=== PATIENT | male | born 1950 | race Caucasian/White ===

== ENCOUNTER → 2018-05-04 09:31 | Outpatient (CLI) | payer MEDICARE, SELFPAY ==
[2018-05-04 12:46] LABS: Hemoglobin A1c 7.5 % (4.2-6.3)
[2018-05-04 12:54] LABS: AST(SGOT) 19 U/L (15-37); Alanine Aminotransfer ALT/SGPT 25 U/L (16-61); Albumin, Serum 3.8 g/dL (3.2-5.0); Alkaline Phosphatase 87 U/L (45-117); Anion Gap 7 (5-15); BUN 15 mg/dL (7-18); BUN/Creat Ratio 12.6 RATIO (10-20); Bilirubin, Direct 0.06 mg/dL (0.00-0.30); Calcium,Total 8.8 mg/dL (8.5-10.1); Chloride 105 mmol/L (98-107); Cholesterol 150 mg/dL (200); Creatinine, Serum 1.19 mg/dL (0.70-1.30); EST Glomerular Filtration Rate 64 mL/min (>60); Est Glom Filt Rate - Afr Amer 78 mL/min (>60); Glucose 153 mg/dL (74-106); High Density Lipoprotein 31 mg/dL; PSA,Total - Annual Screen 1.04 ng/mL (0.00-4.00); Potassium 4.4 mmol/L (3.5-5.1); Protein, Total 7.8 g/dL (6.4-8.2); Sodium Level 141 mmol/L (136-145); Thyroid Stim Hormone (TSH) 3.45 uIU/mL (0.358-3.74); Triglycerides 127 mg/dL; Very Low Density Lipoprotein 25 mg/dL (5-40)
[2018-05-04 13:11] LABS: Microalbumin:Creatinine Ratio 163.3 mg/g CRE (<30 mg/g CRE)
== END ==
PROVIDERS: Family Provider Family Medicine; PCP Family Medicine; Visit Provider Family Medicine
DX: Z00.00 Encounter for general adult medical examination without abnormal findings (principal); E03.9 Hypothyroidism, unspecified; E11.9 Type 2 diabetes mellitus without complications; Z12.5 Encounter for screening for malignant neoplasm of prostate
CPT/HCPCS: 36415; 80048; 80061; 80076; 82043; 82306; 82570; 83036; 84153; 84443; G0103

== ENCOUNTER → 2018-11-02 08:45 | Outpatient (CLI) | payer MEDICARE, SELFPAY ==
[2018-11-02 10:37] LABS: Microalbumin:Creatinine Ratio 148.3 mg/g CRE (<30 mg/g CRE)
[2018-11-02 10:52] LABS: AST(SGOT) 15 U/L (15-37); Alanine Aminotransfer ALT/SGPT 19 U/L (16-61); Alkaline Phosphatase 84 U/L (45-117); Anion Gap 8 (5-15); BUN 18 mg/dL (7-18); BUN/Creat Ratio 14.4 RATIO (10-20); Bilirubin, Direct 0.16 mg/dL (0.00-0.30); Chloride 103 mmol/L (98-107); Cholesterol 170 mg/dL (200); Creatinine, Serum 1.25 mg/dL (0.70-1.30); EST Glomerular Filtration Rate 61 mL/min (>60); Est Glom Filt Rate - Afr Amer 74 mL/min (>60); Globulin 3.7 g/dL (2.2-4.2); Glucose 160 mg/dL (74-106); High Density Lipoprotein 29 mg/dL; Potassium 4.7 mmol/L (3.5-5.1); Protein, Total 7.7 g/dL (6.4-8.2); Sodium Level 137 mmol/L (136-145); Thyroid Stim Hormone (TSH) 3.84 uIU/mL (0.358-3.74); Triglycerides 193 mg/dL; Very Low Density Lipoprotein 39 mg/dL (5-40)
== END ==
PROVIDERS: Family Provider Family Medicine; PCP Family Medicine; Referring Provider Family Medicine; Visit Provider Family Medicine
DX: E11.9 Type 2 diabetes mellitus without complications (principal); E03.9 Hypothyroidism, unspecified
CPT/HCPCS: 36415; 80048; 80061; 80076; 82043; 82570; 84443

== ENCOUNTER → 2019-02-20 07:06 | Outpatient (CLI) | payer MEDICARE, SELFPAY ==
--- NOTE | 2019-02-20 07:11 | CT_ITS ---
STUDY: CT MAXILLOFACIAL SINUSES REASON FOR EXAM: Male, 68 years old. Right-sided nasal polyps. RADIATION DOSAGE (If Supplied By Facility): CTDIvol = ( 29.38 ) mGy, DLP = ( 481.34 ) mGycm TECHNIQUE: The patient was scanned in a multi detector CT scanner. High resolution axial imaging was performed without the administration of intravenous contrast material. Sagittal and coronal images were reconstructed. Individualized dose optimization techniques were used for this CT. COMPARISON: None. FINDINGS: FRONTAL SINUSES: Opacification of the right frontal sinus. ETHMOIDAL SINUSES: Opacification with a thinning of the bony septations of the right ethmoid sinus. MAXILLARY SINUSES: Opacification of the right maxillary sinus with thinning of the medial wall. SPHENOIDAL SINUSES: Mucosal thickening of the anterior aspect of the right sphenoid sinus. Soft tissue proliferation in the right nasal fossa in keeping with the clinical history of nasal polyposis. The visualized bilateral orbital contents are normal. CT/Sinus/Facial Bone IMPRESSION: Soft tissue fullness of the right nasal airway with opacification of the right maxillary sinus, ethmoid sinus and frontal sinus. Thinning of the medial wall of the maxillary sinus on the right side as well as the ethmoid sinuses. Electronically Signed: Braulio Avendaño, at 13:39 EDT , Service support ,
== END ==
PROVIDERS: Family Provider Family Medicine; PCP Family Medicine; Referring Provider Otolaryngology Otolaryngology/Facial Plastic Surgery; Visit Provider Otolaryngology Otolaryngology/Facial Plastic Surgery
DX: J33.9 Nasal polyp, unspecified (principal)
CPT/HCPCS: 70486

== ENCOUNTER 2019-03-14 07:13 | Day surgery (SDC) | payer MEDICARE, SELFPAY ==
--- NOTE | 2019-03-08 10:09 | EKG12_ITS ---
Test Reason : PRE OP Blood Pressure : / mmHG Vent. Rate : 073 BPM Atrial Rate : 073 BPM P-R Int : 160 ms QRS Dur : 100 ms QT Int : 352 ms P-R-T Axes : 048 048 061 degrees QTc Int : 387 ms Normal sinus rhythm Normal ECG No previous ECGs available Confirmed by DASH PIERCE ([id number]), international editorial producer CHELY TANG ([id number]) on 03/13/2019 12:59:34 PM Referred By: Derek Hirsch Confirmed By:DASH PIERCE
[2019-03-08 10:56] LABS: Anion Gap 10 (5-15); BUN 26 mg/dL (7-18); BUN/Creat Ratio 17.3 RATIO (10-20); Calcium,Total 9.2 mg/dL (8.5-10.1); Chloride 104 mmol/L (98-107); EST Glomerular Filtration Rate 49 mL/min (>60); Est Glom Filt Rate - Afr Amer 60 mL/min (>60); Glucose 265 mg/dL (74-106); Potassium 4.4 mmol/L (3.5-5.1); Sodium Level 141 mmol/L (136-145); Thyroid Stim Hormone (TSH) 2.95 uIU/mL (0.358-3.74)
[2019-03-08 11:09] LABS: Hemoglobin A1c 8.2 % (4.2-6.3)
[2019-03-14] VITALS (7 sets, daily range): BP systolic 98–156; BP diastolic 54–77; PULSE 57–65; RESP 14–16; TEMP 36–36.4; O2SAT 91–98; BMI 35.5
[2019-03-14 07:44] LABS: Hematocrit 42.5 % (40-54); Hemoglobin 14.6 g/dl (13.0-16.5); Mean Corp Hgb Conc 34.4 g/gl (32-36); Mean Corpuscular Hgb 30.3 pg (27.0-32.0); Mean Corpuscular Volume 88.2 fL (80-94); Mean Platelet Vol. 9.8 fl (6.2-12.0); Platelet Count 293 K/mm3 (150-450); Red Blood Count 4.82 M/mm3 (4.6-6.2)
--- NOTE | 2019-03-14 07:47 | PCM.OPRPT ---
Problem List (1) Chronic pansinusitis Status: Chronic (2) Nasal sinus polyp Status: Chronic Report of Operation Date of Procedure: 03/14/19 Pre-Operative Diagnosis: chronic pansinusitis Post-Operative Diagnosis: chronic pansinusitis Type of Anesthesia:: General Description of Procedure: on the day of the procedure, after appropriate informed consent was obtained, the patient was brought to the operating room and placed in supine position on the operating table. he was placed under general endotracheal anesthesia. the endotracheal tube was secured, the eyes were lubricated. the image guidance navigation facial recognition markers were set up. the nose was decongested with oxymetazoline soaked pledgets. the zero degree endoscope was inserted into the left nasal cavity. the superior attachment of the middle turbinate and uncinate were injected with lidocaine/epinephrine. polyps were removed from the middle meatus with the microdebrider. an uncinectomy/antrostomy was performed with a lisa elevator and a blakesley. contents were evacuated. the antrostomy was widened with a back biter. the ethmoid bulla was entered bluntly using the suction tip. a total ethmoidectomy was performed with a curette and an upgoing blakesley. numerous polyps were removed. this was taken superiorly to the skull base and laterally to the lamina. a stankewicz maneuver was performed and no laminar defect was noted. a frontal sinus seeker and an upgoing blakesley were used to explore the frontal recess. contents were evacuated. the natural sphenoid os was opened with the microdebrider and contents were evacuated. the anterior/inferior portion of the middle turbinate was removed with turbinate scizzors. hemostasis was achieved and the nose was irrigated with saline. a propel stent was placed in the ethmoid chamber. the zero degree endoscope was inserted into the right nasal cavity. the superior attachment of the middle turbinate and uncinate were injected with lidocaine/epinephrine. polyps were removed from the middle meatus with the microdebrider. an uncinectomy/antrostomy was performed with a lisa elevator and a blakesley. contents were evacuated. the antrostomy was widened with a back biter. the ethmoid bulla was entered bluntly using the suction tip. a total ethmoidectomy was performed with a curette and an upgoing blakesley. numerous polyps were removed. this was taken superiorly to the skull base and laterally to the lamina. a stankewicz maneuver was performed and no laminar defect was noted. a frontal sinus seeker and an upgoing blakesley were used to explore the frontal recess. contents were evacuated. the natural sphenoid os was opened with the microdebrider and contents were evacuated. the anterior/inferior portion of the middle turbinate was removed with turbinate scizzors. hemostasis was achieved and the nose was irrigated with saline. a propel stent was placed in the ethmoid chamber. the patient was awoken from anesthesia and transferred to the PACU in stable condition.
[2019-03-14 08:00] LABS: Scan Indicated on CBC? Y/N NO
[2019-03-14 08:05] LABS: Bedside Glucose 150 mg/dL (70-110)
--- NOTE | 2019-03-14 08:40 | ETH_PTH ---
PATIENT: LATONYA NANCE [place] [facility] [id number] AGE/SX: 68/M ROOM: RE03/14/[address]: Dr. Mariusz Hirsch MD : 1950 BED: DIS: 03/14/2019 SPEC #: [id number] RECD: 03/14/19 12:46 STATUS: SANTIAGO REVidhya #: [id number] MAX: 03/14/19 08:[address]: Mariusz Hirsch DEPT: SURGICAL PATHOLOGY RECD BY: Deshawn Harris ENTERED: 03/14/19 14:25 SP TYPE: ETH TISS OTHR DR: MD Dr. Jack Hilliard MD Tissues: A - Ethmoid sinus, NOS B - Ethmoid sinus, NOS Procedures: Decalcification bone/plaque Surgery Specimen Level III HEADER OPERATION: Endoscopic intranasal ethmoid PRE-OP DIAGNOSIS: Chronic pansinusitis, polyp of nasal cavity TISSUE SUBMITTED: A - Left maxillary and ethmoid sinus contents, B - Right maxillary and ethmoid sinus contents MICROSCOPIC DIAGNOSIS A. Left maxillary and ethmoid sinus contents, curettings: Chronic sinusitis. Fragments of bone with no pathologic change. B. Right maxillary and ethmoid sinus contents, curettings: Chronic sinusitis. Fragments of bone with no pathologic change. Fragments of benign sinonasal polyp, inflamed. AM:skye 03/17/19 MICROSCOPIC DESCRIPTION Slides are reviewed. GROSS DESCRIPTION A - Received in fixative is one container labeled with the patient's name and designated left maxillary and ethmoid sinus contents. The specimen consists of multiple fragments of hemorrhagic, frothy mucoid tissue mixed with martell-pink soft tissue that in aggregate measure 4 x 4 x 1.5 cm. A few possible fragments of bone are also noted. Engineering Analyst sections are submitted in two cassettes after decalcification. B - Received in fixative is one container labeled with the patient's name and designated right maxillary and ethmoid sinus contents. The specimen consists of multiple polypoid fragments of martell soft tissue that in aggregate measure 5 x 5.5 x 2 cm. The largest polypoid fragment measures up to 3.5 cm in greatest dimension. The largest and a few smaller and intermediate polypoid pieces are sectioned. Sectioning reveals mucoid cut surfaces. Also present in the cloth suction bag are multiple pieces of frothy, hemorrhagic soft tissue that in aggregate measure 7 x 5 x 3 cm. Two possible fragments of bone are also noted. Engineering Analyst sections are submitted in seven cassettes as follows: 1-6 - polypoid fragments, 7 - frothy, hemorrhagic tissue. 90% of the polypoid tissue is submitted after decalcification. / DUSTIN:skye 03/14/19 TC:3 CPT: 69804 x2, [id number]
[2019-03-14] MEDS: Oxymetazoline 0.05% 1 SPRAY SPRAY.BTL 15 SPRAY (08:50)
--- NOTE | 2019-03-14 09:56 | PCM.DC ---
- Discharge Diagnoses Current Active Problems: Current Active and Chronic Problems Chronic pansinusitis (Chronic) Nasal sinus polyp (Chronic) You will use the following diet at home:: No restrictions Discharge Activity: Return to Normal Activity Call your doctor if your incision/area has: Sudden Increased Bleeding, Increased Pain/ Swelling Additional Dressing/Incision Instructions:: irrigate nasal cavities 6 times/day with saline Allergies/Adverse Reactions: Allergies No Known Allergies Allergy (Verified 03/07/19 08:03) Medications to take at Discharge Aspirin [Aspir-Low] 81 mg PO DAILY 03/07/19 Diltiazem HCl [Diltiazem 24Hr ER] 240 mg PO BID 03/07/19 Doxazosin Mesylate [Cardura] 2 mg PO 1600 03/07/19 Insulin Glargine [Lantus (BKC)] 58 units SUBCUT QHS 03/07/19 Insulin Lispro [Humalog Kwikpen] 20 unit SQ TIDCM 03/07/19 Levothyroxine Sodium [Synthroid] 100 mcg PO DAILY 03/07/19 Losartan Potassium [Cozaar] 100 mg PO DAILY 03/07/19 Metformin HCl 1,000 mg PO BID 03/07/19 Acetaminophen/Codeine #3 [Tylenol#3] 1 tab PO Q6H PRN PRN #15 tab 03/14/19 The following prescriptions were given: Acetaminophen/Codeine #3 [Tylenol#3] 1 tab PO Q6H PRN PRN #15 tab PRN Reason: Pain Prescription Printed Orders to be completed after discharge: 12 Lead EKG [CVS] Time Frame: 03/07/19, Facility: [facility], Location: Cardiovascular Services Basic Metabolic Profile (BMP) Time Frame: 03/07/19, Facility: [facility], Location: Laboratory Hemoglobin A1c Time Frame: 03/07/19, Facility: [facility], Location: Laboratory Thyroid Stim Hormone (TSH) Time Frame: 03/07/19, Facility: [facility], Location: Laboratory Primary Care Physician: Jack Hammond MD [Primary Care Provider] - Test Results: Test results from this visit will be discussed in further detail at your follow-up appointment, if applicable. Please Follow Up With: Derek Hirsch MD When: 1 week
[2019-03-14 11:16] LABS: Bedside Glucose 241 mg/dL (70-110)
== END 2019-03-14 11:52 | disposition home or self-care (01) ==
LOC: SDC 07:13 → AC 07:15
PROVIDERS: Family Provider Family Medicine; PCP Family Medicine; Referring Provider Otolaryngology; Visit Provider Otolaryngology
PROC: (CPT 31237; principal; 2019-03-14 08:10)
DX: J32.9 Chronic sinusitis, unspecified (principal); J33.8 Other polyp of sinus; I10 Essential (primary) hypertension; E11.9 Type 2 diabetes mellitus without complications; Z79.4 Long term (current) use of insulin
CPT/HCPCS: 00160; 31237; 31240; 31267; 36415; 80048; 82962; 83036; 84443; 85027; 88304; 88305; 88311; 93005; J7120; J2405

== ENCOUNTER → 2020-06-03 08:03 | Outpatient (CLI) | payer MEDICARE, SELFPAY ==
[2019-03-14 07:47] VITALS: BMI 35.5
[2020-06-03 10:15] LABS: Anion Gap 5 (5-15); BUN 20 mg/dL (7-18); BUN/Creat Ratio 15.7 RATIO (10-20); Calcium,Total 8.7 mg/dL (8.5-10.1); Chloride 104 mmol/L (98-107); Cholesterol 176 mg/dL (200); Creatinine, Serum 1.27 mg/dL (0.70-1.30); EST Glomerular Filtration Rate 59 mL/min (>60); Est Glom Filt Rate - Afr Amer 72 mL/min (>60); Free T3 2.6 pg/mL (2.18-3.98); Glucose 180 mg/dL (74-106); High Density Lipoprotein 29 mg/dL; Potassium 4.1 mmol/L (3.5-5.1); Sodium Level 137 mmol/L (136-145); T4 Total, Thyroxin 10.1 ug/dL (4.5-12.1); Triglycerides 139 mg/dL; Very Low Density Lipoprotein 28 mg/dL (5-40)
== END ==
PROVIDERS: PCP Family Medicine; Visit Provider Family Medicine
DX: E11.9 Type 2 diabetes mellitus without complications (principal); E03.9 Hypothyroidism, unspecified
CPT/HCPCS: 36415; 80048; 80061; 84436; 84443; 84481

== ENCOUNTER → 2021-03-24 10:25 | Outpatient (CLI) | payer MEDICARE, SELFPAY ==
[2021-03-24 09:40] VITALS: BMI 37.8
[2021-03-24 12:52] LABS: ALB/GLOB Ratio 1.1 RATIO (0.9-2.4); AST(SGOT) 12 U/L (15-37); Alanine Aminotransfer ALT/SGPT 24 U/L (16-61); Albumin, Serum 3.9 g/dL (3.2-5.0); Alkaline Phosphatase 91 U/L (45-117); Anion Gap 5 (5-15); BUN 14 mg/dL (7-18); BUN/Creat Ratio 11.9 RATIO (10-20); Calcium,Total 9.1 mg/dL (8.5-10.1); Chloride 102 mmol/L (98-107); Cholesterol 190 mg/dL (200); Creatinine, Serum 1.18 mg/dL (0.70-1.30); EST Glomerular Filtration Rate 65 mL/min (>60); Est Glom Filt Rate - Afr Amer 78 mL/min (>60); Globulin 3.7 g/dL (2.2-4.2); Glucose 117 mg/dL (74-106); High Density Lipoprotein 34 mg/dL; Potassium 3.9 mmol/L (3.5-5.1); Protein, Total 7.6 g/dL (6.4-8.2); Sodium Level 138 mmol/L (136-145); T4 Free Direct 1.11 ng/dL (0.76-1.46); Thyroid Stim Hormone (TSH) 3.99 uIU/mL (0.358-3.74); Triglycerides 171 mg/dL; Very Low Density Lipoprotein 34 mg/dL (5-40)
[2021-03-24 13:37] LABS: Microalbumin:Creatinine Ratio 554.9 mg/g CRE (<30 mg/g CRE)
== END ==
PROVIDERS: PCP Family Medicine; Visit Provider Nurse Practitioner Family
DX: E03.9 Hypothyroidism, unspecified (principal); E11.65 Type 2 diabetes mellitus with hyperglycemia; E11.22 Type 2 diabetes mellitus with diabetic chronic kidney disease; N18.30 Chronic kidney disease, stage 3 unspecified; Z79.4 Long term (current) use of insulin; I12.9 Hypertensive chronic kidney disease with stage 1 through stage 4 chronic kidney disease, or unspecified chronic kidney disease
CPT/HCPCS: 36415; 80053; 80061; 82043; 82570; 84439; 84443

== ENCOUNTER → 2021-06-03 08:25 | Outpatient (CLI) | payer MEDICARE, SELFPAY ==
[2021-06-03 10:48] LABS: Anion Gap 8 (5-15); BUN 12 mg/dL (7-18); BUN/Creat Ratio 9.5 RATIO (10-20); Calcium,Total 9.2 mg/dL (8.5-10.1); Chloride 101 mmol/L (98-107); Cholesterol 192 mg/dL (200); Creatinine, Serum 1.26 mg/dL (0.70-1.30); EST Glomerular Filtration Rate 60 mL/min (>60); Est Glom Filt Rate - Afr Amer 72 mL/min (>60); Free T3 2.8 pg/mL (2.18-3.98); Glucose 198 mg/dL (74-106); High Density Lipoprotein 33 mg/dL; Potassium 4.4 mmol/L (3.5-5.1); Sodium Level 139 mmol/L (136-145); T4 Free Direct 1.18 ng/dL (0.76-1.46); Thyroid Stim Hormone (TSH) 2.94 uIU/mL (0.358-3.74); Triglycerides 187 mg/dL; Very Low Density Lipoprotein 37 mg/dL (5-40)
== END ==
PROVIDERS: PCP Family Medicine; Referring Provider Family Medicine; Visit Provider Family Medicine
DX: E03.9 Hypothyroidism, unspecified (principal); E11.9 Type 2 diabetes mellitus without complications
CPT/HCPCS: 36415; 80048; 80061; 84439; 84443; 84481

== ENCOUNTER 2021-09-26 08:08 | Outpatient (CLI) | payer MEDICARE, SELFPAY ==
[2021-09-26 10:43] LABS: Anion Gap 6 (5-15); BUN 18 mg/dL (7-18); BUN/Creat Ratio 15.1 RATIO (10-20); Calcium,Total 9.3 mg/dL (8.5-10.1); Chloride 105 mmol/L (98-107); Cholesterol 193 mg/dL (200); Creatinine, Serum 1.19 mg/dL (0.70-1.30); EST Glomerular Filtration Rate 64 mL/min (>60); Est Glom Filt Rate - Afr Amer 77 mL/min (>60); Glucose 123 mg/dL (74-106); High Density Lipoprotein 33 mg/dL; Potassium 4.5 mmol/L (3.5-5.1); Sodium Level 139 mmol/L (136-145); Thyroid Stim Hormone (TSH) 3.79 uIU/mL (0.358-3.74); Triglycerides 158 mg/dL; Very Low Density Lipoprotein 32 mg/dL (5-40)
== END 2021-09-26 23:59 | disposition short-term general hospital (02) ==
PROVIDERS: PCP Family Medicine; Referring Provider Family Medicine; Visit Provider Family Medicine
DX: E11.9 Type 2 diabetes mellitus without complications (principal); E03.9 Hypothyroidism, unspecified
CPT/HCPCS: 36415; 80048; 80061; 84443

== ENCOUNTER 2021-11-28 08:11 | Outpatient (CLI) | payer MEDICARE, SELFPAY ==
[2021-11-28 10:40] LABS: Anion Gap 5 (5-15); BUN 17 mg/dL (7-18); BUN/Creat Ratio 14.3 RATIO (10-20); Calcium,Total 8.9 mg/dL (8.5-10.1); Chloride 104 mmol/L (98-107); Cholesterol 116 mg/dL (200); Creatinine, Serum 1.19 mg/dL (0.70-1.30); EST Glomerular Filtration Rate 64 mL/min (>60); Est Glom Filt Rate - Afr Amer 77 mL/min (>60); Free T3 2.5 pg/mL (2.18-3.98); Glucose 164 mg/dL (74-106); High Density Lipoprotein 30 mg/dL; Potassium 4.3 mmol/L (3.5-5.1); Sodium Level 139 mmol/L (136-145); T4 Free Direct 1.25 ng/dL (0.76-1.46); Thyroid Stim Hormone (TSH) 3.34 uIU/mL (0.358-3.74); Triglycerides 156 mg/dL; Very Low Density Lipoprotein 31 mg/dL (5-40)
== END 2021-11-28 23:59 | disposition home or self-care (01) ==
LOC: MFPLAB 08:13
PROVIDERS: PCP Family Medicine; Referring Provider Family Medicine; Visit Provider Family Medicine
DX: E11.9 Type 2 diabetes mellitus without complications (principal); E03.9 Hypothyroidism, unspecified
CPT/HCPCS: 36415; 80048; 80061; 84439; 84443; 84481

== ENCOUNTER → 2022-05-25 | Outpatient (CLI) | payer MEDICARE, SELFPAY ==
[2022-05-25 13:17] LABS: Anion Gap 8 (5-15); BUN 18 mg/dL (7-18); BUN/Creat Ratio 14.1 RATIO (10-20); Calcium,Total 9.7 mg/dL (8.5-10.1); Chloride 107 mmol/L (98-107); Cholesterol 141 mg/dL (200); Creatinine, Serum 1.28 mg/dL (0.70-1.30); EST Glomerular Filtration Rate 59 mL/min (>60); Est Glom Filt Rate - Afr Amer 71 mL/min (>60); Free T3 2.4 pg/mL (2.18-3.98); Glucose 75 mg/dL (74-106); High Density Lipoprotein 29 mg/dL; Potassium 4.1 mmol/L (3.5-5.1); Sodium Level 142 mmol/L (136-145); T4 Free Direct 1.19 ng/dL (0.76-1.46); Thyroid Stim Hormone (TSH) 3.81 uIU/mL (0.358-3.74); Triglycerides 242 mg/dL; Very Low Density Lipoprotein 48 mg/dL (5-40)
== END | disposition home or self-care (01) ==
LOC: MFPLAB 10:16
PROVIDERS: PCP Family Medicine; Visit Provider Family Medicine
DX: E03.9 Hypothyroidism, unspecified (principal); I10 Essential (primary) hypertension
CPT/HCPCS: 36415; 80048; 80061; 84439; 84443; 84481

== ENCOUNTER → 2022-11-13 | Outpatient (CLI) | payer MEDICARE, SELFPAY ==
[2022-11-13 10:46] LABS: Anion Gap 6 (5-15); BUN 23 mg/dL (7-18); BUN/Creat Ratio 15.3 RATIO (10-20); Calcium,Total 8.8 mg/dL (8.5-10.1); Chloride 103 mmol/L (98-107); Cholesterol 103 mg/dL (200); EST Glomerular Filtration Rate 49 mL/min (>60); Est Glom Filt Rate - Afr Amer 59 mL/min (>60); Glucose 288 mg/dL (74-106); High Density Lipoprotein 29 mg/dL; Potassium 4.1 mmol/L (3.5-5.1); Sodium Level 137 mmol/L (136-145); T4 Free Direct 1.11 ng/dL (0.76-1.46); Thyroid Stim Hormone (TSH) 2.92 uIU/mL (0.358-3.74); Triglycerides 186 mg/dL; Very Low Density Lipoprotein 37 mg/dL (5-40)
[2022-11-13 10:54] LABS: Microalbumin:Creatinine Ratio 157.7 mg/g CRE (<30 mg/g CRE)
== END | disposition home or self-care (01) ==
LOC: MFPLAB 08:18
PROVIDERS: PCP Family Medicine; Referring Provider Family Medicine; Visit Provider Family Medicine
DX: E11.9 Type 2 diabetes mellitus without complications (principal); E03.9 Hypothyroidism, unspecified
CPT/HCPCS: 36415; 80048; 80061; 82043; 82570; 84439; 84443; 84481

== ENCOUNTER 2023-03-15 10:24 | Outpatient (RCR) | payer SELFPAY | END 2023-04-05 23:59 | LOC: NS 10:24 | PROVIDERS: PCP Family Medicine | DX: Z71.3 Dietary counseling and surveillance (principal); E11.9 Type 2 diabetes mellitus without complications ==

== ENCOUNTER → 2023-05-19 | Outpatient (CLI) | payer MEDICARE, SELFPAY ==
[2023-05-19 10:49] LABS: Anion Gap 3 (5-15); BUN 16 mg/dL (7-18); BUN/Creat Ratio 12.8 RATIO (10-20); Calcium,Total 9.1 mg/dL (8.5-10.1); Chloride 107 mmol/L (98-107); Cholesterol 113 mg/dL (200); Creatinine, Serum 1.25 mg/dL (0.70-1.30); EST Glomerular Filtration Rate 60 mL/min (>60); Est Glom Filt Rate - Afr Amer 73 mL/min (>60); Glucose 169 mg/dL (74-106); High Density Lipoprotein 34 mg/dL; PSA,Total - Annual Screen 1.57 ng/mL (0.00-4.00); Potassium 4.3 mmol/L (3.5-5.1); Sodium Level 138 mmol/L (136-145); Triglycerides 136 mg/dL; Very Low Density Lipoprotein 27 mg/dL (5-40)
== END | disposition home or self-care (01) ==
LOC: MFPLAB 09:13
PROVIDERS: PCP Family Medicine; Visit Provider Family Medicine
DX: Z12.5 Encounter for screening for malignant neoplasm of prostate (principal); E11.21 Type 2 diabetes mellitus with diabetic nephropathy; I10 Essential (primary) hypertension
CPT/HCPCS: 36415; 80048; 80061; 84153; G0103

== ENCOUNTER 2023-07-21 11:45 | Outpatient (CLI) | payer MEDICARE, SELFPAY ==
[2023-07-21 15:29] LABS: Anion Gap 3 (5-15); BUN 23 mg/dL (7-18); BUN/Creat Ratio 15.9 RATIO (10-20); Calcium,Total 8.8 mg/dL (8.5-10.1); Chloride 107 mmol/L (98-107); Creatinine, Serum 1.45 mg/dL (0.70-1.30); EST Glomerular Filtration Rate 51 mL/min (>60); Est Glom Filt Rate - Afr Amer 61 mL/min (>60); Glucose 130 mg/dL (74-106); Potassium 4.2 mmol/L (3.5-5.1); Sodium Level 140 mmol/L (136-145)
[2023-07-21 15:59] LABS: BNP,B-Type NATRIURETIC PEPTIDE 26.4 pg/mL (0-100)
== END 2023-07-21 23:59 | disposition home or self-care (01) ==
LOC: MFPLAB 11:45
PROVIDERS: PCP Family Medicine; Visit Provider Family Medicine
DX: M79.89 Other specified soft tissue disorders (principal); E66.9 Obesity, unspecified
CPT/HCPCS: 36415; 80048; 83880

== ENCOUNTER → 2023-08-05 | Outpatient (CLI) | payer MEDICARE, SELFPAY ==
[2023-08-05 12:35] LABS: Anion Gap 4 (5-15); BUN 24 mg/dL (7-18); BUN/Creat Ratio 16.3 RATIO (10-20); Calcium,Total 9.4 mg/dL (8.5-10.1); Chloride 104 mmol/L (98-107); Creatinine, Serum 1.47 mg/dL (0.70-1.30); EST Glomerular Filtration Rate 50 mL/min (>60); Est Glom Filt Rate - Afr Amer 60 mL/min (>60); Glucose 92 mg/dL (74-106); Potassium 4.4 mmol/L (3.5-5.1); Sodium Level 139 mmol/L (136-145)
== END | disposition home or self-care (01) ==
LOC: MFPLAB 09:42
PROVIDERS: PCP Family Medicine; Visit Provider Family Medicine
DX: R60.9 Edema, unspecified (principal)
CPT/HCPCS: 36415; 80048

== ENCOUNTER → 2023-09-21 | Outpatient (CLI) | payer MEDICARE, SELFPAY ==
--- NOTE | 2023-09-21 09:48 | ECHOCS_ITS ---
Reason For Study: edema Procedure This was a 2D Doppler, Color Flow transthoracic echocardiogram. The study was technically difficult. D/T body habitus. Contrast injection was performed. Exam performed in department. Left Ventricle Normal LV size. Left ventricular systolic function is normal. The estimated ejection fraction is 55 %. Stage 1 diastolic dysfunction. No regional wall motion abnormalities noted. Right Ventricle Normal RV size. Normal systolic function. Atria The left atrium is mildly enlarged. Normal right atrium. Mitral Valve Mitral valve not well visualized. Tricuspid Valve Normal tricuspid valve. Aortic Valve The aortic valve is not well visualized. Pulmonic Valve The pulmonic valve is not well visualized. Great Vessels Normal aortic root. The pulmonary artery is normal size. Normal inferior vena cava. Pericardium/Pleural No pericardial effusion. Medication 22 gauge I.V. with prn adaptor inserted into left arm. Diluted definity 2.5ml given slow IV push to enhance endocardial definition. MMode/2D Measurements & Calculations LVIDd: 5.2 cm IVSd: 1.2 cm Ao root diam: 3.5 cm LVIDs: 3.6 cm LVPWd: 1.1 cm RVDd: 3.6 cm FS: 30.7 % LAV(MOD-bp): 75.9 ml LVAd ap4: 32.0 cm2 SV(MOD-sp4): 47.9 ml LAV(MOD-bp) Indexed: 32.8 ml/m2 LVLd ap4: 9.3 cm LAV(MOD-sp2): 82.1 ml EDV(MOD-sp4): 91.9 ml LAV(MOD-sp4): 69.9 ml EDV(sp4-el): 94.2 ml LVAs ap4: 19.7 cm2 LVLs ap4: 7.6 cm ESV(MOD-sp4): 44.0 ml ESV(sp4-el): 43.1 ml EF(MOD-sp4): 52.1 % EF(sp4-el): 54.3 % SV(sp4-el): 51.1 ml LA A4 area: 22.8 cm2 LA dimension(2D): 4.6 cm RA A4 area: 18.5 cm2 TAPSE: 3.0 cm Time Measurements MV dec time: 0.22 sec Doppler Measurements & Calculations MV E max kannan: 90.3 cm/sec Lat Peak E' Kannan: 9.6 cm/sec Med Peak E' Kannan: 7.5 cm/sec MV A max kannan: 100.6 cm/sec E/E' lat: 9.4 E/E' med: 12.0 MV E/A: 0.90 MV V2 max: 106.1 cm/sec MV P1/2t max kannan: 91.8 cm/sec Ao V2 max: 159.9 cm/sec MV max P.5 mmHg MV P1/2t: 71.1 msec Ao max P.2 mmHg MV V2 mean: 54.1 cm/sec MV dec slope: 378.1 cm/sec2 Ao V2 mean: 122.2 cm/sec MV mean P.4 mmHg MVA(P1/2t): 3.1 cm2 Ao mean P.4 mmHg MV V2 VTI: 32.1 cm Ao V2 VTI: 34.4 cm AV (velocity ratio): 0.74 LV V1 max: 117.9 cm/sec PA V2 max: 119.4 cm/sec LV V1 max P.6 mmHg PA V2 mean: 82.3 cm/sec LV V1 mean P.3 mmHg LV V1 mean: 88.5 cm/sec LV V1 VTI: 25.3 cm ECHO/Echo Complete W/ Contrast Interpretation Summary Normal LV size. Left ventricular systolic function is normal. The estimated ejection fraction is 55 %. Stage 1 diastolic dysfunction. The left atrium is mildly enlarged. Contrast injection was performed. Ordering Physician: Jack Hammond Referring Physician: Jack Hammond Performed By: Yue Sanchez, MYKEL, RVT
== END | disposition home or self-care (01) ==
LOC: CVS 09:47
PROVIDERS: PCP Family Medicine; Referring Provider Family Medicine; Visit Provider Family Medicine
DX: R60.9 Edema, unspecified (principal); I50.30 Unspecified diastolic (congestive) heart failure; I51.7 Cardiomegaly
CPT/HCPCS: 93306; Q9957; A4216; C8929

== ENCOUNTER → 2023-11-01 | Outpatient (CLI) | payer MEDICARE, SELFPAY ==
[2023-11-01 12:26] LABS: Anion Gap 4 (5-15); BUN 24 mg/dL (7-18); BUN/Creat Ratio 16.4 RATIO (10-20); Calcium,Total 9.2 mg/dL (8.5-10.1); Chloride 105 mmol/L (98-107); Cholesterol 110 mg/dL (200); Creatinine, Serum 1.46 mg/dL (0.70-1.30); EST Glomerular Filtration Rate 50 mL/min (>60); Est Glom Filt Rate - Afr Amer 61 mL/min (>60); Glucose 126 mg/dL (74-106); High Density Lipoprotein 31 mg/dL; Potassium 4.1 mmol/L (3.5-5.1); Sodium Level 138 mmol/L (136-145); Triglycerides 121 mg/dL; Very Low Density Lipoprotein 24 mg/dL (5-40)
[2023-11-01 12:33] LABS: Hemoglobin A1c 7.5 % (3.8-5.6)
[2023-11-01 12:42] LABS: Microalbumin:Creatinine Ratio 95.2 mg/g CRE (<30 mg/g CRE)
== END | disposition home or self-care (01) ==
LOC: MFPLAB 10:09
PROVIDERS: PCP Family Medicine; Visit Provider Family Medicine
DX: E11.21 Type 2 diabetes mellitus with diabetic nephropathy (principal)
CPT/HCPCS: 36415; 80048; 80061; 82043; 82570; 83036

== ENCOUNTER → 2024-01-26 | Outpatient (CLI) | payer MEDICARE, SELFPAY ==
[2024-01-26 13:04] LABS: Anion Gap 6 (5-15); BUN 32 mg/dL (7-18); BUN/Creat Ratio 20.6 RATIO (10-20); Calcium,Total 9.4 mg/dL (8.5-10.1); Chloride 104 mmol/L (98-107); Cholesterol 119 mg/dL (200); Creatinine, Serum 1.55 mg/dL (0.70-1.30); EST Glomerular Filtration Rate 47 mL/min (>60); Est Glom Filt Rate - Afr Amer 57 mL/min (>60); Free T3 2.2 pg/mL (2.18-3.98); Glucose 167 mg/dL (74-106); High Density Lipoprotein 28 mg/dL; Potassium 4.3 mmol/L (3.5-5.1); Sodium Level 137 mmol/L (136-145); T4 Free Direct 1.19 ng/dL (0.76-1.46); Thyroid Stim Hormone (TSH) 2.36 uIU/mL (0.358-3.74); Triglycerides 193 mg/dL; Very Low Density Lipoprotein 39 mg/dL (5-40)
== END | disposition home or self-care (01) ==
LOC: MFPLAB 10:23
PROVIDERS: PCP Family Medicine; Visit Provider Family Medicine
DX: E11.21 Type 2 diabetes mellitus with diabetic nephropathy (principal); E03.9 Hypothyroidism, unspecified
CPT/HCPCS: 36415; 80048; 80061; 84439; 84443; 84481

== ENCOUNTER → 2024-04-26 | Outpatient (CLI) | payer MEDICARE, SELFPAY ==
[2024-04-26 15:48] LABS: Anion Gap 6 (5-15); BUN 23 mg/dL (7-18); BUN/Creat Ratio 16.9 RATIO (10-20); Calcium,Total 9.8 mg/dL (8.5-10.1); Chloride 103 mmol/L (98-107); Cholesterol 126 mg/dL (200); Creatinine, Serum 1.36 mg/dL (0.70-1.30); EST Glomerular Filtration Rate 54 mL/min (>60); Est Glom Filt Rate - Afr Amer 66 mL/min (>60); Free T3 2.3 pg/mL (2.18-3.98); Glucose 128 mg/dL (74-106); High Density Lipoprotein 31 mg/dL; Potassium 4.2 mmol/L (3.5-5.1); Sodium Level 138 mmol/L (136-145); T4 Free Direct 1.08 ng/dL (0.76-1.46); Triglycerides 244 mg/dL; Very Low Density Lipoprotein 49 mg/dL (5-40)
== END | disposition home or self-care (01) ==
LOC: MFPLAB 11:22
PROVIDERS: PCP Family Medicine; Visit Provider Family Medicine
DX: E03.9 Hypothyroidism, unspecified (principal); E11.21 Type 2 diabetes mellitus with diabetic nephropathy
CPT/HCPCS: 36415; 80048; 80061; 84439; 84443; 84481

== ENCOUNTER → 2024-09-26 | Outpatient (CLI) | payer MEDICARE, SELFPAY ==
[2024-09-26 13:37] LABS: ALB/GLOB Ratio 0.9 RATIO (0.9-2.4); AST(SGOT) 15 U/L (15-37); Alanine Aminotransfer ALT/SGPT 15 U/L (16-61); Albumin, Serum 3.8 g/dL (3.2-5.0); Alkaline Phosphatase 77 U/L (45-117); Anion Gap 11 (5-15); BUN 26 mg/dL (7-18); BUN/Creat Ratio 15.9 RATIO (10-20); Calcium,Total 9.5 mg/dL (8.5-10.1); Chloride 101 mmol/L (98-107); Cholesterol 115 mg/dL (200); Creatinine, Serum 1.64 mg/dL (0.70-1.30); EST Glomerular Filtration Rate 44 mL/min (>60); Est Glom Filt Rate - Afr Amer 53 mL/min (>60); Free T3 2.2 pg/mL (2.18-3.98); Globulin 4.1 g/dL (2.2-4.2); Glucose 164 mg/dL (74-106); High Density Lipoprotein 35 mg/dL; Protein, Total 7.9 g/dL (6.4-8.2); Sodium Level 138 mmol/L (136-145); T4 Free Direct 1.12 ng/dL (0.76-1.46); Triglycerides 209 mg/dL; Very Low Density Lipoprotein 42 mg/dL (5-40)
== END | disposition home or self-care (01) ==
LOC: MFPLAB 10:25
PROVIDERS: PCP Family Medicine; Referring Provider Family Medicine; Visit Provider Family Medicine
DX: E11.21 Type 2 diabetes mellitus with diabetic nephropathy (principal); E03.9 Hypothyroidism, unspecified
CPT/HCPCS: 36415; 80053; 80061; 84439; 84443; 84481

== ENCOUNTER → 2025-01-02 | Outpatient (CLI) | payer MEDICARE, SELFPAY ==
[2025-01-02 12:52] LABS: Anion Gap 12 (5-15); BUN 18 mg/dL (4-19); BUN/Creat Ratio 13.3 RATIO (10-20); Calcium,Total 9.1 mg/dL (7.6-11.0); Carbon Dioxide 25.2 mmol/L (21.0-32.0); Chloride 102 mmol/L (98-108); Creatinine, Serum 1.35 mg/dL (0.70-1.20); EST Glomerular Filtration Rate 55 (>60); Glucose 170 mg/dL (70-99); Potassium 4.2 mmol/L (3.3-5.1); Sodium Level 139 mmol/L (133-145)
[2025-01-02 13:20] LABS: Protein, Urine (Random) 33.8 mg/dL (0.0-12.0); Protein:Creat Ratio 154 mg/g CRE (0-200)
== END | disposition home or self-care (01) ==
LOC: MFPLAB 09:59
PROVIDERS: PCP Family Medicine; Referring Provider Family Medicine; Visit Provider Family Medicine
DX: N28.9 Disorder of kidney and ureter, unspecified (principal)
CPT/HCPCS: 36415; 80048; 82570; 84156

== ENCOUNTER 2025-02-13 10:30 | Outpatient (RCR) | payer MEDICARE, SELFPAY ==
--- NOTE | 2025-01-22 12:50 | HP.PTEVAL_ITS ---
Patient's Visit Information Visit Information Visit Information: LATONYA NANCE is a 74 year old M referred to Physical Therapy by Dr. Jack Hammond MD with a diagnosis of Back pain. Date of Evaluation: 01/22/25 Physical Therapist: Elio Mccray, GABIT, OCS, CSCS Visit Plan Frequency: 2x /Week Duration: 4-6 Weeks Plan: 2x/week for 3-6.. IE HEP: NS standing, PT 10x, trunk rotation supine 10x, seated flexion 10x all 3x/day and postural review with NS.HO given Treat with rollout and streetch B quads psoas to HEP NS education in standing flexion stretches for LB and Lumb ar ROM. core strength in NS to HEP to complement rittman rec. educated on bracing and benefits of wh walkeer.For pain Subjective Subjective: Back pain with standing and walking. sitting is instant relief. Been that way a couple years, More frequent now. Almost debilitating says . Can't go on a walk, hard to lose weight. [place] rec workout 3x/week adn tolerates well. x ray DDD adn OA. No other doctors. this is first step. Meds do not help. Sleep: is OK. Not employed spends day watching tv and sitting on deck. Tries to go on walk adn can go walk with 1/2 mile with cane or walking stick. Basic ADLSs are shower bathroom dressing all I. Standing at counter making salad hurts, has to sit. Can do groceries but has to lean on cart. Pain LBP: Pain Intensity (Out of 10): 0 Pain Intensity Range: 0 and 4 Objective Objective: Walks into PT with kyphotic T/S posture and sits with protracted scap and hunched. Walks I, flat L/S lordosis. Very little pelvic movement today. L/S AROM ext max limited and painful, flexion mod limited and no pain, SB mod limtied no pain. reeflexes 2/3 patella dna chilles B. Sensation WNL to gross light touch B LE strength knees and ankles 5/5, hips 4+ in flexion and 4- in abd and ext and rotations. Core weak with leg testing in stability. - slump, - SLR. Good balance Balance/Special Test Scores Oswestry Low Back Score: 24 Goals Goal 1:: I appropriate HEP to limit future problems wiht back pain(NS, core strength, quad stretches.) Goal Time Frame: 4-6 Weeks Goal 2:: Pt feel 70% better and pain LB 1/10 at worst Goal Time Frame: 4-6 Weeks Goal 3:: Oswestry score 5 or better Goal Time Frame: 4-6 Weeks Rehabilitation Potential Physical Therapy Diagnosis: degenerative back pain making QOL walking with poor. Rehabilitation Potential: Fair Anticipated Interventions Patient/Client Instruction: Educate patient on: Condition and Plan of Care For the Purpose of:: To decrease pain, To increase ROM, To improve nutrient delivery to tissue, To improve muscle performance and motor function, To increase tolerance to activity/condition/position and To increase flexibility/ROM Therapeutic Exercise to Include: Strength training, Postural training, Fle xibilty training, Passive ROM and Active ROM For the Purpose of:: To decrease pain, To increase ROM, To improve nutrient delivery to tissue, To improve muscle performance and motor function, To increase tolerance to activity/condition/position, To improve ability of physical actions for home/community/work/leisure and To improve gait and locomotor functions Manual Therapy Techniques to Include: Mobilization, Passive ROM and Soft tissue mobilization For the Purpose of:: To decrease pain, To increase ROM, To improve nutrient delivery to tissue, To improve muscle performance and motor function and To increase flexibility/ROM Thermo therapy (hot pack): Yes For the Purpose of:: To improve nutrient delivery to tissue and To decrease level of supervision to perform tasks Text: Thank you for the opportunity to evaluate your patient. For Medicare and Medicare HMO plans, please review the plan of care and approve it. It will need to be FAXED BACK to us at [phone] for Medicare purposes. For Medicare only, by signing this I certify the plan of care. Please let me know if there are questions or concerns regarding this plan of care. Physician Signature: _Date:
--- NOTE | 2025-03-05 15:52 | HP.PTDCNRP_ITS ---
Patient Information Patient Information: LATONYA NANCE was seen in my office for initial evaluation on 01/22/25. The following Plan of Care was established for this patient: POC Established Initial Frequency: 2x /Week Initial Duration: 4-6 Weeks Anticipated Interventions Patient/Client Instruction: Educate patient on: Condition and Plan of Care For the Purpose of:: To decrease pain, To increase ROM, To improve nutrient delivery to tissue, To improve muscle performance and motor function, To increase tolerance to activity/condition/position and To increase flexibil ity/ROM Therapeutic Exercise to Include: Strength training, Postural training, Flexibilty training, Passive ROM and Active ROM For the Purpose of:: To decrease pain, To increase ROM, To improve nutrient delivery to tissue, To improve muscle performance and motor function, To increase tolerance to activity/condition/position, To improve ability of phy sical actions for home/community/work/leisure and To improve gait and locomotor functions Manual Therapy Techniques to Include: Mobilization, Passive ROM and Soft tissue mobilization For the Purpose of:: To decrease pain, To increase ROM, To improve nutrient delivery to tissue, To improve muscle performance and motor function and To increase flexibility/ROM Thermo therapy (hot pack): Yes For the Purpose of:: To improve nutrient delivery to tissue and To decrease level of supervision to perform tasks Last Seen Last Seen: This patient was last seen in our office 02/13/25. Pertinent comments regarding their Physical therapy will appear below: Pt seen 7 visits of POC and was 90% better. He was to f/u two weeks later but cancelled stating evrything is doing great I will discontinue from my care. At this point I will be discontinuing this patient from physical therapy. I would be happy to see this patient again in the future if found appropriate by the physician. Thank you! Elio Mccray, DPT, OCS, CSCS Balance/Gait/Functional tests Balance/Special Test Scores Oswestry Low Back Score: 5
== END 2025-02-13 19:00 | disposition home or self-care (01) ==
LOC: PT 10:30
PROVIDERS: PCP Family Medicine; Referring Provider Family Medicine; Visit Provider Family Medicine
DX: M54.9 Dorsalgia, unspecified (principal)
CPT/HCPCS: 97110; 97161; 97530

== ENCOUNTER → 2025-04-10 | Outpatient (CLI) | payer MEDICARE, SELFPAY ==
--- OUTSIDE RECORDS SUMMARY | 2025-04-10 09:19 | XMS RPT_ITS | CCD ---
Author Organization [facility] Care Team Providers Care Certified Veterinary Technician Name Role Phone Dr. Jack Hammond Primary Care Provider [phone] Ry, Dr. Mcdowell Attending Provider Ry, Dr. Mcdowell Referring Provider Stephany SOLORZANO, Dr. Santiago Primary Care Provider [phone] Stephany SOLORZANO, Dr. Santiago Attending Provider Stephany SOLORZANO, Dr. Santiago Referring Provider Stephany SOLORZANO, Dr. Santiago Primary Care Provider [phone] Stephany SOLORZANO, Dr. Santiago Attending Provider Stephany SOLORZANO, Dr. Santiago Referring Provider Ry SOLORZANO, Dr. Mcdowell Attending Provider Jack Hammond Attending Unavailable Hammond, Jack Primary Care Unavailable Hammond, Jack Primary Care Unavailable Hammond, Jack Referring Unavailable Hammond, Jack Attending Unavailable Hammond, Jack Referring Unavailable Hammond, Jack Attending Unavailable Hammond, Jack Primary Care Unavailable Jeremias Raza Attending Unavailable Stephany, Jack Primary Care Unavailable Hammond, Jack Referring Unavailable Hammond, Jack Attending Unavailable Hammond, Jack Primary Care Unavailable Medications Current Medications Medication Drug Class(es) Dates Sig (Normalized) Sig (Original) [id number] 200 actuat albuterol 0.09 mg/actuat metered dose inhaler (2 sources) beta2-Adrenergic Agonist Start: 12-18-19 24 Albuterol Sulfate 90 mcg/actuation HFA aerosol inhaler Active 2 NMA INHALATION EVERY 4-6 HOURS as needed for shortness of breath or wheezing 8.5 0 December 18, 2023 12:00am amoxicillin 875 mg / clavulanate 125 mg oral tablet (2 sources) Penicillin-class Antibacterial Start: 12-18-19 24 Amoxicillin-Pot Clavulanate 875-125 mg tablet Active 1 {tbl} PO Q12H 20 0 December 18, 2023 12:00am aspirin 81 mg delayed release oral tablet (8 sources) Platelet Aggregation Inhibitor, Nonsteroidal Anti-inflammatory Drug Start: 03-07-20 19 take 1 tablet by mouth once daily Aspirin 81 MG tablet,delayed release (DR/EC) Active 81 mg PO DAILY March 07, 2019 12:00am heart health 24 hr dilTIAZem hydrochloride 240 mg extended release oral capsule (8 sources) Calcium Channel Morales Start: 03-07-20 take 1 capsule by mouth twice daily Diltiazem Hcl 240 MG capsule,extended release 24hr Active 240 mg PO TWICE A DAY March 07, 2019 12:00am htn doxazosin 2 mg oral tablet (8 sources) alpha-Adrenergic Morales Start: 03-07-20 Doxazosin 2 MG tablet Active 2 mg PO 1600 March 07, 2019 12:00am bp hydroCHLOROthiazide 25 mg oral tablet (8 sources) Thiazide Diuretic Start: 05-01-20 21 take 1 tablet by mouth once daily Hydrochlorothiazide 25 mg tablet Active 25 mg PO DAILY 90 3 May 01, 2021 12:00am 3 ml insulin lispro 100 unt/ml pen injector (20 sources) Insulin Analog Start: 11-08-19 End: 05-15-20 21 Insulin Lispro 100 unit/mL insulin pen Active 20 U SC 3 TIMES DAILY WITH MEALS 54 2 May 15, 2021 10:32am diabetes Start: 03-07-2019 End: 11-07-2020 inject 20 [IU] by subcutaneous injection three times daily at mealtime Insulin Lispro 100 UNIT/ML insulin pen Discontinued 20 U SQ 3 TIMES DAILY WITH MEALS March 07, 2019 12:00am November 07, 2020 10:23am diabetes levothyroxine sodium 0.1 mg oral tablet (16 sources) l-Thyroxine Start: 03-07-2019 End: 05-15-2021 take 1 tablet by mouth once daily Levothyroxine 100 mcg tablet Active 100 ug PO DAILY 90 3 May 15, 2021 11:31am thyroid losartan potassium 100 mg oral tablet (16 sources) Angiotensin 2 Receptor Morales Start: 03-07-2019 End: 05-15-2021 take 1 tablet by mouth once daily Losartan 100 mg tablet Active 100 mg PO DAILY 90 3 May 15, 2021 11:31am htn metFORMIN hydrochloride 1000 mg oral tablet (16 sources) Biguanide Start: 03-07-2019 End: 05-15-2021 take 1 tablet by mouth twice daily Metformin 1,000 mg tablet Active 1000 mg PO TWICE A DAY 180 May 15, 2021 11:30am diabetes Completed/Discontinued Medications Medication Drug Class(es) Dates Sig (Normalized) Sig (Original) acetaminophen 300 mg / codeine phosphate 30 mg oral tablet (8 sources) Opioid Agonist Start: 03-14-2019 End: 08-08-2020 Acetaminophen-Codei ne 1 TABLET tablet Discontinued 1 {tbl} PO EVERY 6 HOURS NEEDED as needed for Pain 15 March 14, 2019 12:00am August 08, 2020 9:17am Start: 03-14-2019 End: 08-08-2020 take 1 tablet by mouth every six hours as needed Acetaminophen-Codeine Discontinued 1 TABLET PO EVERY 6 HOURS NEEDED 15 March 13, 2019 11:00pm August 08, 2020 8:17am 3 ml insulin glargine 100 unt/ml pen injector (20 sources) Insulin Analog Start: 11-07-2020 End: 05-15-2021 Insulin Glargine 100 unit/mL (3 mL) insulin pen Discontinued 40 U SC AT BEDTIME 36 2 November 07, 2020 10:20am May 15, 2021 10:32am diabetes Start: 03-07-2019 End: 11-07-2020 Insulin Glargine 100 UNITS/M L insulin pen Discontinued 58 U SC AT BEDTIME March 07, 2019 12:00am November 07, 2020 10:20am diabetes Start: 03-07-2019 End: 11-07-2020 Insulin Glargine Discontinue d 58 UNITS SC AT BEDTIME March 06, 2019 11:00pm November 07, 2020 9:20am Problems Active Problems Problem Classification Problem Date Documented Da te Episodic/Chronic Diabetes mellitus with complications (9 sources) Chronic kidney disease stage 3 due to type 2 diabetes mellitus; Translations: [Type 2 diabetes mellitus with diabetic chronic kidney disease] Onset: 10-19-2024 08-09-2020 Chronic Diabetes mellitus without complication (8 sources) Diabetes mellitus; Translations: [Type 2 diabetes mellitus without complications] 08-09-2020 Chronic Essential hypertension (8 sources) Benign essential hypertension; Translations: [Essential (primary) hypertension] 08-09-2020 Chronic Other diseases of kidney and ureters (1 source) Disorder of kidney and ureter, unspecified; Translations: [Disorder of kidney and ureter, unspecified] Onset: 01-11-2025 Episodic Other lower respiratory disease (2 sources) Cough; Translations: [Cough] 12-18-2023 Episodic Other nutritional; endocrine; and metabolic disorders (8 sources) Obesity; Translations: [Obesity, unspecified] 08-09-2020 Chronic Other upper respiratory disease (8 sources) Polyp of nasal sinus; Translations: [Other polyp of sinus] 03-14-2019 Episodic Other upper respiratory infections (8 sources) Chronic pansinusitis; Translations: [Chronic pansinusitis] 03-14-2019 Chronic Other upper respiratory infections (2 sources) Acute sinusitis; Translations: [Acute sinusitis, unspecified] 12-18-2023 Episodic Thyroid disorders (9 sources) Acquired hypothyroidism; Translations: [Hypothyroidism, unspecified] Onset: 05-12-2024 08-09-2020 Chronic Past or Other Problems Problem Classification Problem Date Documented Da te Episodic/Chronic Unclassified (8 sources) history of bladder/ kidney infection 04-05-2022 Results Test Name Value Interpretation Reference Range Facility Inital Evaluation (1) - PTon 01-22-2025 Inital Evaluation (1) - PT [facility] [address] [place] [address] [address] [place] [address] / REHABILITATION SERVICES INITIAL EVALUATION MR#: [id number] Acct: [id number] Name: LATONYA NANCE Rep #: [id number] : 1950 74 From: Elio Mccray DPT, ZANE, CSCS Referring Dr.: Dr. Jack Hammond MD Status: REG RCR Insurance: [facility] SEL[employer] PAY INSURANCE Patient's Visit Information Visit Information Visit Information: LATONYA NANCE is a 74 year old M referred to Physical Therapy by Dr. Jack Hammond MD with a diagnosis of Back pain. Date of Evaluation: 01/22/25 Physical Therapist: Elio Mccray DPT, ZANE, CSCS Visit Plan Frequency: 2x /Week Duration: 4-6 Weeks Plan: 2x/week for 3-6.. IE HEP: NS standing, PT 10x, trunk rotation supine 10x, seated flexion 10x all 3x/day and postural review with NS.HO given Treat with rollout and streetch B quads psoas to HEP NS education in standing flexion stretches for LB and Lumb ar ROM. core strength in NS to HEP to complement rittman rec. educated on bracing and benefits of wh walkeer.For pain Subjective Subjective: Back pain with standing and walking. sitting is instant relief. Been that way a couple years, More frequent now. Almost debilitating says . Can't go on a walk, hard to lose weight. [place] rec workout 3x/week adn tolerates well. x ray DDD adn OA. No other doctors. this is first step. Meds do not help. Sleep: is OK. Not employed spends day watching tv and sitting on deck. Tries to go on walk adn can go walk with 1/2 mile with cane or walking stick. Basic ADLSs are shower bathroom dressing all I. Standing at counter making salad hurts, has to sit. Can do groceries but has to lean on cart. Pain LBP: Pain Intensity (Out of 10): 0 Pain Intensity Range: 0 and 4 Objective Objective: Walks into PT with kyphotic T/S posture and sits with protracted scap and hunched. Walks I, flat L/S lordosis. Very little pelvic movement today. L/S AROM ext max limited and painful, flexion mod limited and no pain, SB mod limtied no pain. reeflexes 2/3 patella dna chilles B. Sensation WNL to gross light touch B LE strength knees and ankles 5/5, hips 4+ in flexion and 4- in abd and ext and rotations. Core weak with leg testing in stability. - slump, - SLR. Good balance Balance/Special Test Scores Oswestry Low Back Score: 24 Goals Goal 1:: I appropriate HEP to limit future problems wiht back pain(NS, core strength, quad stretches.) Goal Time Frame: 4-6 Weeks Goal 2:: Pt feel 70% better and pain LB 1/10 at worst Goal Time Frame: 4-6 Weeks Goal 3:: Oswestry score 5 or better Goal Time Frame: 4-6 Weeks Rehabilitation Potential Physical Therapy Diagnosis: degenerative back pain making QOL walking with poor. Rehabilitation Potential: Fair Anticipated Interventions Patient/Client Instruction: Educate patient on: Condition and Plan of Care For the Purpose of:: To decrease pain, To increase ROM, To improve nutrient delivery to tissue, To improve muscle performance and motor function, To increase tolerance to activity/condition/p osition and To increase flexibility/ROM Therapeutic Exercise to Include: Strength training, Postural training, Flexibilty training, Passive ROM and Active ROM For the Purpose of:: To decrease pain, To increase ROM, To improve nutrient delivery to tissue, To improve muscle performance and motor function, To increase tolerance to activity/condition/p osition, To improve ability of physical actions for home/community/work/ leisure and To improve gait and locomotor functions Manual Therapy Techniques to Include: Mobilization, Passive ROM and Soft tissue mobilization For the Purpose of:: To decrease pain, To increase ROM, To improve nutrient delivery to tissue, To improve muscle performance and motor function and To increase flexibility/ROM Thermo therapy (hot pack): Yes For the Purpose of:: To improve nutrient delivery to tissue and To decrease level of supervision to perform tasks Text: Thank you for the opportunity to evaluate your patient. For Medicare and Medicare HMO plans, please review the plan of care and approve it. It will need to be FAXED BACK to us at [phone] for Medicare purposes. For Medicare only, by signing this I certify the plan of care. Please let me know if there are questions or concerns regarding this plan of care. Physician Signature: D ate: 01/22/25 1250 CC: Dr. Jack Hammond MD FRANK Signed Normal [facility] Lumbar Spine 2 or 3 Viewson 01-12-2025 Lumbar Spine 2 or 3 Views [facility] Services [address] [place] [address] Lumbar Spine 2 or 3 Views MR#: [id number] Acct: [id number] Name: LATONYA NANCE Rep #: [id number] : 1950 M 74 From: Freddy Jo MD PCP: Dr. Jack Hammond MD Status: DEP AMB Study: Lumbar Spine 2 or 3 Views Date of Exam: Exam# [id number] Ordering Dr: Jack Hammond MD EXAM: XR Lumbosacral Spine, 2 or 3 Views CLINICAL INDICATION: BACK PAIN TECHNIQUE: Frontal and lateral views of the lumbar spine and sacrum. COMPARISON: No relevant prior studies available. FINDINGS: VERTEBRAE: Multilevel endplate degenerative changes and disc disease as well as facet arthropathy anterior spurring of the lumbar spine, most prominent from L3-S1. Normal alignment. No acute fracture. SACRUM/COCCYX: Unremarkable as visualized. No acute fracture. DISC SPACES: No acute findings. No significant narrowing. SOFT TISSUES: Unremarkable. VASCULATURE: Scattered calcified atherosclerotic disease of aorta. RAD/Lumbar Spine 2 or 3 Views IMPRESSION: 1. No acute fracture. 2. Degenerative changes as above. Reading Location: [id number] CC: Dr. Jack Hammond MD Director Business Management: Signed Normal [facility] Anion gap in Serum or Plasma Ordered By: Jack Hammond on 01-02-2025 Anion gap [Moles/Vol] 12 mmol/L 01-18 [facility] BUN/creatinine ratioOrdered By: Jack Hammond on 01-02-2025 Urea nitrogen/Creatinine [Mass ratio] 13.3 mg/mg 06-25 [facility] Basic Metabolic Profile (BMP )on 01-02-2025 BUN/CRE 13.3 RATIO Normal 06-25 [facility] Comment on above: Performed By: #### L 501.0900, L500.2500 #### [facility] [address] [place], [address] GAP 12 Normal 01-18 [facility] Comment on above: Performed By: #### L 501.0900, L500.2500 #### [facility] [address] [place], [address] Potassium [Moles/Vol] 4.2 mmol/L Normal 3.3-5.1 [facility] Comment on above: Performed By: #### L 501.0900, L500.2500 #### [facility] [address] [place], [address] Carbon dioxide, total [Moles /volume] in Central venous bloodOrdered By: Jack Hammond on 01-02-2025 CO2 [Moles/Vol] 25.2 mmol/L Normal 21.0-32.0 [facility] Comment on above: Performed By: #### L 501.0900, L500.2500 #### [facility] [address] [place], [address] Chloride assayOrdered By: Harsh Hammond on 01-02-2025 Chloride [Moles/Vol] 102 mmol/L Normal 98-108 [facility] Comment on above: Performed By: #### L 501.0900, L500.2500 #### [facility] [address] [place], [address] Glomerular filtration rate ( GFR) estimation/1.73 sq m using serum, plasma, or whole bOrdered By: Jack Hammond on 01-02-2025 GFR/1.73 sq M.predicted among non-blacks MDRD (S/P/Bld) [Vol rate/Area] 55 mL/min/{1.73_m2} Low >60 [facility] Comment on above: mL/min/1.73m2 CKD-EP I Creatinine Equation (2020) Result Comment: mL/m in/1.73m2 CKD-EPI Creatinine Equation (2020) Performed By: #### L 501.0900, L500.2500 #### [facility] [address] [place], [address] Potassium measurement (mass/ volume)Ordered By: Jack Hammond on 01-02-2025 Potassium (Unsp spec) [Mass/Vol] 4.2 mmol/L 3.3-5.1 [facility] Protein+Creatinine Ratio,Uri neon 01-02-2025 PROT:CRE RATIO 154 mg/g CRE Normal 0-200 [facility] Comment on above: Performed By: #### L 501.0900, L500.2500 #### [facility] [address] [place], [address] UR CREAT 220.00 mg/dL Normal 39.00-259.00 [facility] Comment on above: Performed By: #### L 501.0900, L500.2500 #### [facility] [address] [place], [address] Random urine creatinine lillie urement (mass/volume)Ordered By: Jack Hammond on 01-02-2025 Creatinine Unsp time (U) [Mass/Vol] 220.00 mg/dL 39.00-259.00 [facility] Serum creatinine measurement (mass/volume)Ordered By: Jack Hammond on 01-02-2025 Creatinine [Mass/Vol] 1.35 mg/dL High 0.70-1.20 [facility] Comment on above: Performed By: #### L 501.0900, L500.2500 #### [facility] [address] [place], [address] Serum glucose measurement (m ass/volume)Ordered By: Jack Hammond on 01-02-2025 Glucose [Mass/Vol] 170 mg/dL High 70-99 [facility] Comment on above: Performed By: #### L 501.0900, L500.2500 #### [facility] [address] [place], [address] Serum or plasma calcium lillie urement (mass/volume)Ordered By: Jack Hammond on 01-02-2025 Calcium [Mass/Vol] 9.1 mg/dL Normal 7.6-11.0 [facility] Comment on above: Performed By: #### L 501.0900, L500.2500 #### [facility] [address] [place], [address] Serum or plasma urea nitroge n measurement (mass/volume)Ordered By: Jack Hammond on 01-02-2025 Urea nitrogen [Mass/Vol] 18 mg/dL Normal 4-19 [facility] Comment on above: Performed By: #### L 501.0900, L500.2500 #### [facility] [address] [place], [address] Sodium levelOrdered By: Jack Hammond on 01-02-2025 Sodium [Moles/Vol] 139 mmol/L Normal 133-145 [facility] Comment on above: Performed By: #### L 501.0900, L500.2500 #### [facility] [address] [place], [address] Urine protein measurement (m ass/volume)Ordered By: Jack Hammond on 01-02-2025 Protein (U) [Mass/Vol] 33.8 mg/dL High 0.0-12.0 [facility] Comment on above: Performed By: #### L 501.0900, L500.2500 #### [facility] [address] [place], [address] Urine protein/creatinine mas s ratioOrdered By: Jack Hammond on 01-02-2025 Protein/Creatinine (U) [Mass ratio] 154 mg/g CRE 0-200 [facility] Albumin to globulin ratioOrd ered By: Jack Hammond on 09-26-2024 Albumin/Globulin [Mass ratio] 0.9 {ratio} 0.9-2.4 [facility] Bilirubin, totalOrdered By: Jack Hammond on 09-26-2024 Bilirubin [Mass/Vol] 0.30 mg/dL 0.20-1.00 [facility] Comment on above: For patients on eltr ombopag therapy, use of Dim[place] TBIL is not recommended. Blood urea nitrogen (BUN)/cr eatinine ratioOrdered By: Jack Hammond on 09-26-2024 Urea nitrogen/Creatinine [Mass ratio] 15.9 mg/mg 10-20 [facility] Carbon dioxide measurementOr dered By: Jack Hammond on 09-26-2024 CO2 [Moles/Vol] 26.0 mmol/L 21.0-32.0 [facility] Chloride measurementOrdered By: Jack Hammond on 09-26-2024 Chloride [Moles/Vol] 101 mmol/L 98-107 [facility] Comprehensive Metabolic Prof ilon 09-26-2024 Albumin [Mass/Vol] 3.8 g/dL Normal 3.2-5.0 [facility] Comment on above: Performed By: #### L 500.4050, L506.0400, L500.4100, L501.9520, L501.26307 #### [facility] [address] [place], [address] Albumin/Globulin [Mass ratio] 0.9 {ratio} Normal 0.9-2.4 [facility] Comment on above: Performed By: #### L 500.4050, L506.0400, L500.4100, L501.9520, L501.07197 #### [facility] [address] [place], [address] ALK P 77 U/L Normal 45-117 [facility] Comment on above: Performed By: #### L 500.4050, L506.0400, L500.4100, L501.9520, L501.00855 #### [facility] [address] [place], [address] ALT [Catalytic activity/Vol] 15 U/L Low 16-61 [facility] Comment on above: Performed By: #### L 500.4050, L506.0400, L500.4100, L501.9520, L501.05664 #### [facility] [address] [place], [address] AST [Catalytic activity/Vol] 15 U/L Normal 15-37 [facility] Comment on above: Performed By: #### L 500.4050, L506.0400, L500.4100, L501.9520, L501.41943 #### [facility] [address] [place], [address] Bilirubin [Mass/Vol] 0.30 mg/dL Normal 0.20-1.00 [facility] Comment on above: Result Comment: For patients on eltrombopag therapy, use of [place] TBIL is not recommended. Performed By: #### L 500.4050, L506.0400, L500.4100, L501.9520, L501.14918 #### [facility] [address] [place], [address] BUN/CRE 15.9 RATIO Normal 10-20 [facility] Comment on above: Performed By: #### L 500.4050, L506.0400, L500.4100, L501.9520, L501.04300 #### [facility] [address] [place], [address] CA,Total 9.5 mg/dL Normal 8.5-10.1 [facility] Comment on above: Performed By: #### L 500.4050, L506.0400, L500.4100, L501.9520, L501.17712 #### [facility] [address] [place], [address] Chloride [Moles/Vol] 101 mmol/L Normal 98-107 [facility] Comment on above: Performed By: #### L 500.4050, L506.0400, L500.4100, L501.9520, L501.37540 #### [facility] [address] [place], [address] CO2 [Moles/Vol] 26.0 mmol/L Normal 21.0-32.0 [facility] Comment on above: Performed By: #### L 500.4050, L506.0400, L500.4100, L501.9520, L501.99720 #### [facility] [address] [place], [address] Creatinine [Mass/Vol] 1.64 mg/dL High 0.70-1.30 [facility] Comment on above: Result Comment: The validity of the calculated GFR GFRAA in patients over 70 years has not been determined. Clinical correlation is essential. Performed By: #### L 500.4050, L506.0400, L500.4100, L501.9520, L501.77669 #### [facility] [address] [place], [address] EST GFR - AA 53 mL/min Low >60 [facility] Comment on above: Result Comment: Afri can [place]ian GFR Calc Performed By: #### L 500.4050, L506.0400, L500.4100, L501.9520, L501.56378 #### [facility] [address] [place], [address] GAP 11 Normal 5-15 [facility] Comment on above: Performed By: #### L 500.4050, L506.0400, L500.4100, L501.9520, L501.26391 #### [facility] [address] [place], [address] GFR/1.73 sq M.predicted among non-blacks MDRD (S/P/Bld) [Vol rate/Area] 44 mL/min/{1.73_m2} Low >60 [facility] Comment on above: Result Comment: Non- GFR Calc Performed By: #### L 500.4050, L506.0400, L500.4100, L501.9520, L501.23134 #### [facility] [address] [place], [address] Globulin (S) [Mass/Vol] 4.1 g/dL Normal 2.2-4.2 [facility] Comment on above: Performed By: #### L 500.4050, L506.0400, L500.4100, L501.9520, L501.27816 #### [facility] [address] [place], [address] Glucose [Mass/Vol] 164 mg/dL High 74-106 [facility] Comment on above: Result Comment: Fast ing Glucose result greater than or equal to 126 mg/dL suggests DIABETES MELLITUS per A.D.A. criteria. Performed By: #### L 500.4050, L506.0400, L500.4100, L501.9520, L501.88255 #### [facility] [address] [place], [address] Potassium [Moles/Vol] 4.0 mmol/L Normal 3.5-5.1 [facility] Comment on above: Performed By: #### L 500.4050, L506.0400, L500.4100, L501.9520, L501.64955 #### [facility] [address] [place], [address] Sodium [Moles/Vol] 138 mmol/L Normal 136-145 [facility] Comment on above: Performed By: #### L 500.4050, L506.0400, L500.4100, L501.9520, L501.42809 #### [facility] [address] [place], [address] T PROT 7.9 g/dL Normal 6.4-8.2 [facility] Comment on above: Performed By: #### L 500.4050, L506.0400, L500.4100, L501.9520, L501.63979 #### [facility] [address] [place], [address] Urea nitrogen [Mass/Vol] 26 mg/dL High 7-18 [facility] Comment on above: Performed By: #### L 500.4050, L506.0400, L500.4100, L501.9520, L501.54220 #### [facility] [address] [place], [place], [address] Direct serum free thyroxine (FT4) measurementOrdered By: Jack Hammond on 09-26-2024 Free T4 [Mass/Vol] 1.12 ng/dL 0.76-1.46 [facility] Free T3on 09-26-2024 Free T3 [Mass/Vol] 2.2 pg/mL Normal 2.18-3.98 [facility] Comment on above: Performed By: #### L 501.0900, L500.2500 #### [facility] [address] [place], [place], [address] Free O0Cktetxk By: Jack avitia on 09-26-2024 Free T3 [Mass/Vol] 2.2 pg/mL 2.18-3.98 [facility] Glomerular filtration rate ( GFR) estimationOrdered By: Jack Hammond on 09-26-2024 GFR/1.73 sq M.predicted among non-blacks MDRD (S/P/Bld) [Vol rate/Area] 44 mL/min/{1.73_m2} Low >60 [facility] Comment on above: Non- GFR Calc Glucose measurementOrdered B y: Jack Hammond on 09-26-2024 Glucose [Mass/Vol] 164 mg/dL High 74-106 [facility] Comment on above: Fasting Glucose resu lt greater than or equal to 126 mg/dL suggests DIABETES MELLITUS per A.D.A. criteria. High density lipoprotein (HD L) measurementOrdered By: Jack Hammond on 09-26-2024 Cholesterol in HDL [Mass/Vol] 35 mg/dL Low >40 [facility] Comment on above: The drugs N-Acetylcy steine and Metamizole may falsely depress this assay. Reference Range HDL <40 mg/dL Low HDL Cholesterol HDL >or= 60 mg/dL High HDL Cholesterol Laboratory - Chemistry and C hemistry - challengeOrdered By: Jack Hammond on 09-26-2024 AST [Catalytic activity/Vol] 15 U/L 15-37 [facility] Lipid Profileon 09-26-2024 Cholesterol [Mass/Vol] 115 mg/dL Normal 200 [facility] Comment on above: Result Comment: <200 mg/dL Desirable 200-240 mg/dL Borderline >240 mg/dL High Risk Performed By: #### L 501.0900, L500.2500 #### [facility] [address] [place], [address] Cholesterol in HDL [Mass/Vol] 35 mg/dL Low [facility] Comment on above: Result Comment: The drugs N-Acetylcysteine and Metamizole may falsely depress this assay. Reference Range HDL <40 mg/dL Low HDL Cholesterol HDL >or= 60 mg/dL High HDL Cholesterol Performed By: #### L 501.0900, L500.2500 #### [facility] [address] [place], [address] Cholesterol in LDL [Mass/Vol] 38 mg/dL Normal 0-130 [facility] Comment on above: Performed By: #### L 501.0900, L500.2500 #### [facility] [address] [place], [address] Cholesterol in VLDL [Mass/Vol] 42 mg/dL High 5-40 [facility] Comment on above: Performed By: #### L 501.0900, L500.2500 #### [facility] [address] [place], [address] Triglyceride [Mass/Vol] 209 mg/dL High [facility] Comment on above: Result Comment: The drugs N-Acetylcysteine and Metamizole may falsely depress this assay. Serum Triglycerides Reference Interval Normal <150 mg/dL Borderline high 150 - 199 mg/dL High 200 - 499 mg/dL Very High > or = 500 mg/dL Performed By: #### L 501.0900, L500.2500 #### [facility] [address] [place], [address] Low density lipoprotein (LDL ) cholesterol measurementOrdered By: Jack Hammond on 09-26-2024 Cholesterol in LDL [Mass/Vol] 38 mg/dL 0-130 [facility] Potassium measurementOrdered By: Jack Hammond on 09-26-2024 Potassium [Moles/Vol] 4.0 mmol/L 3.5-5.1 [facility] Serum anion gap measurementO rdered By: Jack Hammond on 09-26-2024 Anion gap [Moles/Vol] 11 mmol/L 5-15 [facility] Serum globulin measurementOr dered By: Jack Hammond on 09-26-2024 Globulin (S) [Mass/Vol] 4.1 g/dL 2.2-4.2 [facility] Serum or plasma alanine [place] otransferase (ALT) measurementOrdered By: Jack Hammond on 09-26-2024 ALT [Catalytic activity/Vol] 15 U/L Low 16-61 [facility] Serum or plasma albumin lillie urement (mass/volume)Ordered By: Jack Hammond on 09-26-2024 Albumin [Mass/Vol] 3.8 g/dL 3.2-5.0 [facility] Serum or plasma alkaline jessica sphatase measurementOrdered By: Jack Hammond on 09-26-2024 ALP [Catalytic activity/Vol] 77 U/L 45-117 [facility] Serum or plasma calcium lillie urement (mass/volume)Ordered By: Jack Hammond on 09-26-2024 Calcium [Mass/Vol] 9.5 mg/dL 8.5-10.1 [facility] Serum or plasma cholesterol measurement (mass/volume)Ordered By: Jack Hammond on 09-26-2024 Cholesterol [Mass/Vol] 115 mg/dL <200 [facility] Comment on above: <200 mg/dL Desirable 200-240 mg/dL Borderline >240 mg/dL High Risk Serum or plasma creatinine m easurement (mass/volume)Ordered By: Jack Hammond on 09-26-2024 Creatinine [Mass/Vol] 1.64 mg/dL High 0.70-1.30 [facility] Comment on above: The validity of the calculated GFR & GFRAA in patients over 70 years has not been determined. Clinical correlation is essential. Serum or plasma thyroid stim ulating hormone (TSH) measurement (units/volume)Ordered By: Jack Hammond on 09-26-2024 TSH Qn 3.780 uIU/mL High 0.358-3.740 [facility] Serum or plasma urea nitroge n measurement (mass/volume)Ordered By: Jack Hammond on 09-26-2024 Urea nitrogen [Mass/Vol] 26 mg/dL High 7-18 [facility] Sodium levelOrdered By: Jack Hammond on 09-26-2024 Sodium [Moles/Vol] 138 mmol/L 136-145 [facility] T4 Free Directon 09-26-2024 T4 FREE DIRECT 1.12 ng/dL Normal 0.76-1.46 [facility] Comment on above: Performed By: #### L 501.0900, L500.2500 #### [facility] [address] [facility] [place], [place], [id number] Thyroid Stim Hormone (TSH)on 09-26-2024 TSH 3.780 uIU/mL High 0.358-3.740 [facility] Comment on above: Performed By: #### L 501.0900, L500.2500 #### [facility] [address] [facility] [place], [place], [id number] Total proteinOrdered By: Lauren Hammond on 09-26-2024 Protein [Mass/Vol] 7.9 g/dL 6.4-8.2 [facility] Triglycerides measurementOrd ered By: Jack Hammond on 09-26-2024 Triglyceride [Mass/Vol] 209 mg/dL High <199 [facility] Comment on above: The drugs N-Acetylcy steine and Metamizole may falsely depress this assay.Serum Triglycerides Reference Interval Normal <150 mg/dL Borderline high 150 - 199 mg/dL High 200 - 499 mg/dL Very High > or = 500 mg/dL Very low density lipoprotein (VLDL) cholesterol measurementOrdered By: Jack Hammond on 09-26-2024 Very low density lipoprotein (VLDL) cholesterol measurement 42 mg/dL High 5-40 [facility] Basic Metabolic Profile (BMP )on 04-26-2024 BUN/CRE 16.9 RATIO Normal 10-20 [facility] Comment on above: Performed By: #### L 500.2500, L500.4100, L501.44267, L506.0400, L501.9520 #### [facility] [address] [place], [address] CA,Total 9.8 mg/dL Normal 8.5-10.1 [facility] Comment on above: Performed By: #### L 500.2500, L500.4100, L501.43606, L506.0400, L501.9520 #### [facility] [address] [place], [address] Chloride [Moles/Vol] 103 mmol/L Normal 98-107 [facility] Comment on above: Performed By: #### L 500.2500, L500.4100, L501.67347, L506.0400, L501.9520 #### [facility] [address] [place], [address] CO2 [Moles/Vol] 29.0 mmol/L Normal 21.0-32.0 [facility] Comment on above: Performed By: #### L 500.2500, L500.4100, L501.40366, L506.0400, L501.9520 #### [facility] [address] [place], [address] Creatinine [Mass/Vol] 1.36 mg/dL High 0.70-1.30 [facility] Comment on above: Result Comment: The validity of the calculated GFR GFRAA in patients over 70 years has not been determined. Clinical correlation is essential. Performed By: #### L 500.2500, L500.4100, L501.59175, L506.0400, L501.9520 #### [facility] [address] [place], [address] EST GFR - AA 66 mL/min Normal >60 [facility] Comment on above: Result Comment: Afri can Croatian GFR Calc Performed By: #### L 500.2500, L500.4100, L501.83814, L506.0400, L501.9520 #### [facility] [address] [place], [address] GAP 6 Normal 5-15 [facility] Comment on above: Performed By: #### L 500.2500, L500.4100, L501.92297, L506.0400, L501.9520 #### [facility] [address] [place], [address] GFR/1.73 sq M.predicted among non-blacks MDRD (S/P/Bld) [Vol rate/Area] 54 mL/min/{1.73_m2} Low >60 [facility] Comment on above: Result Comment: Non- GFR Calc Performed By: #### L 500.2500, L500.4100, L501.10210, L506.0400, L501.9520 #### [facility] [address] [place], [address] Glucose [Mass/Vol] 128 mg/dL High 74-106 [facility] Comment on above: Result Comment: Fast ing Glucose result greater than or equal to 126 mg/dL suggests DIABETES MELLITUS per A.D.A. criteria. Performed By: #### L 500.2500, L500.4100, L501.98139, L506.0400, L501.9520 #### [facility] [address] [place], [address] Potassium [Moles/Vol] 4.2 mmol/L Normal 3.5-5.1 [facility] Comment on above: Performed By: #### L 500.2500, L500.4100, L501.75186, L506.0400, L501.9520 #### [facility] [address] [place], [address] Sodium [Moles/Vol] 138 mmol/L Normal 136-145 [facility] Comment on above: Performed By: #### L 500.2500, L500.4100, L501.53368, L506.0400, L501.9520 #### [facility] [address] [place], [address] Urea nitrogen [Mass/Vol] 23 mg/dL High 7-18 [facility] Comment on above: Performed By: #### L 500.2500, L500.4100, L501.49771, L506.0400, L501.9520 #### [facility] [address] [place], [address] Free T3on 04-26-2024 Free T3 [Mass/Vol] 2.3 pg/mL Normal 2.18-3.98 [facility] Comment on above: Performed By: #### L 500.2500, L500.4100, L501.39016, L506.0400, L501.9520 #### [facility] [address] [place], [address] Lipid Profileon 04-26-2024 Cholesterol [Mass/Vol] 126 mg/dL Normal 200 [facility] Comment on above: Result Comment: <200 mg/dL Desirable 200-240 mg/dL Borderline >240 mg/dL High Risk Performed By: #### L 500.2500, L500.4100, L501.53354, L506.0400, L501.9520 #### [facility] [address] [place], [address] Cholesterol in HDL [Mass/Vol] 31 mg/dL Low [facility] Comment on above: Result Comment: The drugs N-Acetylcysteine and Metamizole may falsely depress this assay. Reference Range HDL <40 mg/dL Low HDL Cholesterol HDL >or= 60 mg/dL High HDL Cholesterol Performed By: #### L 500.2500, L500.4100, L501.40411, L506.0400, L501.9520 #### [facility] [address] [place], [address] Cholesterol in LDL [Mass/Vol] 46 mg/dL Normal 0-130 [facility] Comment on above: Performed By: #### L 500.2500, L500.4100, L501.72000, L506.0400, L501.9520 #### [facility] [address] [place], [address] Cholesterol in VLDL [Mass/Vol] 49 mg/dL High 5-40 [facility] Comment on above: Performed By: #### L 500.2500, L500.4100, L501.71212, L506.0400, L501.9520 #### [facility] [address] [place], [address] Triglyceride [Mass/Vol] 244 mg/dL High [facility] Comment on above: Result Comment: The drugs N-Acetylcysteine and Metamizole may falsely depress this assay. Serum Triglycerides Reference Interval Normal <150 mg/dL Borderline high 150 - 199 mg/dL High 200 - 499 mg/dL Very High > or = 500 mg/dL Performed By: #### L 500.2500, L500.4100, L501.04891, L506.0400, L501.9520 #### [facility] [address] [place], [address] T4 Free Directon 04-26-2024 T4 FREE DIRECT 1.08 ng/dL Normal 0.76-1.46 [facility] Comment on above: Performed By: #### L 500.2500, L500.4100, L501.44998, L506.0400, L501.9520 #### [facility] [address] [place], [address] Thyroid Stim Hormone (TSH)on 04-26-2024 TSH 3.400 uIU/mL Normal 0.358-3.740 [facility] Comment on above: Performed By: #### L 500.2500, L500.4100, L501.43530, L506.0400, L501.9520 #### [facility] [address] [place], [address] Basophil percentageOrdered B y: Jack Hammond on 11-01-2023 Chloride [Moles/Vol] 105 mmol/L 98-107 [facility] Cholesterol [Mass/Vol] 110 mg/dL <200 [facility] Comment on above: <200 mg/dL Desirable 200-240 mg/dL Borderline >240 mg/dL High Risk Glucose [Mass/Vol] 126 mg/dL 74-106 [facility] Comment on above: Fasting Glucose resu lt greater than or equal to 126 mg/dL suggests DIABETES MELLITUS per A.D.A. criteria. Potassium [Moles/Vol] 4.1 mmol/L 3.5-5.1 [facility] Sodium [Moles/Vol] 138 mmol/L 136-145 [facility] Triglyceride [Mass/Vol] 121 mg/dL <199 [facility] Comment on above: The drugs N-Acetylcy steine and Metamizole may falsely depress this assay.Serum Triglycerides Reference Interval Normal <150 mg/dL Borderline high 150 - 199 mg/dL High 200 - 499 mg/dL Very High > or = 500 mg/dL Laboratory - Chemistry and C hemistry - challengeOrdered By: Jack Hammond on 11-01-2023 Cholesterol in HDL [Mass/Vol] 31 mg/dL >40 [facility] Comment on above: The drugs N-Acetylcy steine and Metamizole may falsely depress this assay. Reference Range HDL <40 mg/dL Low HDL Cholesterol HDL >or= 60 mg/dL High HDL Cholesterol Cholesterol in LDL [Mass/Vol] 55 mg/dL 0-130 [facility] CO2 [Moles/Vol] 29.0 mmol/L 21.0-32.0 [facility] Urea nitrogen/Creatinine [Mass ratio] 16.4 mg/mg 10-20 [facility] No Panel InformationOrdered By: Jack Hammond on 11-01-2023 Estimated GFR (MDRD) Amer 61 mL/min >60 [facility] Comment on above: GFR Calc Estimated GFR (MDRD) Non-Af Amer 50 mL/min >60 [facility] Comment on above: Non- GFR Calc Urine Microalbumin/Creatinine Ratio 95.2 mg/g CRE <30 [facility] VLDL Cholesterol 24 mg/dL 5-40 [facility] Serum or plasma calcium lillie urement (mass/volume)Ordered By: Jack Hammond on 11-01-2023 Calcium [Mass/Vol] 9.2 mg/dL 8.5-10.1 [facility] Serum or plasma creatinine m easurement (mass/volume)Ordered By: Jack Hammond on 11-01-2023 Creatinine [Mass/Vol] 1.46 mg/dL 0.70-1.30 [facility] Comment on above: The validity of the calculated GFR & GFRAA in patients over 70 years has not been determined. Clinical correlation is essential. Serum or plasma urea nitroge n measurement (mass/volume)Ordered By: Jack Hammond on 11-01-2023 Urea nitrogen [Mass/Vol] 24 mg/dL 7-18 [facility] Thin prep Papanicolaou smear with manual screeningOrdered By: Jack Hammond on 11-01-2023 Thin prep Papanicolaou smear with manual screening 4 5-15 [facility] Thin prep Papanicolaou smear with manual screening 158.0 mg/L NO RANGE EST. [facility] Urine creatinine measurement (mass/volume)Ordered By: Jack Hammond on 11-01-2023 Creatinine (U) [Mass/Vol] 166.00 mg/dL NO RANGE EST. [facility] Whole blood hemoglobin A1c/t otal hemoglobin ratio (mass fraction)Ordered By: Jack Hammond on 11-01-2023 HbA1c (Bld) [Mass fraction] 7.5 % 3.8-5.6 [facility] Comment on above: Normal < 5.7 % Predi abetic 5.7 - 6.4 % Diabetic >or= 6.5 % Please note range changes. Basophil percentageOrdered B y: Jack Hammond on 08-05-2023 Chloride [Moles/Vol] 104 mmol/L 98-107 [facility] Glucose [Mass/Vol] 92 mg/dL 74-106 [facility] Potassium [Moles/Vol] 4.4 mmol/L 3.5-5.1 [facility] Sodium [Moles/Vol] 139 mmol/L 136-145 [facility] Laboratory - Chemistry and C hemistry - challengeOrdered By: Jack Hammond on 08-05-2023 CO2 [Moles/Vol] 31.0 mmol/L 21.0-32.0 [facility] Urea nitrogen/Creatinine [Mass ratio] 16.3 mg/mg 10-20 [facility] No Panel InformationOrdered By: Jack Hammond on 08-05-2023 Estimated GFR (MDRD) Amer 60 mL/min >60 [facility] Comment on above: GFR Calc Estimated GFR (MDRD) Non-Af Amer 50 mL/min >60 [facility] Comment on above: Non- GFR Calc Serum or plasma calcium lillie urement (mass/volume)Ordered By: Jack Hammond on 08-05-2023 Calcium [Mass/Vol] 9.4 mg/dL 8.5-10.1 [facility] Serum or plasma creatinine m easurement (mass/volume)Ordered By: Jack Hammond on 08-05-2023 Creatinine [Mass/Vol] 1.47 mg/dL 0.70-1.30 [facility] Comment on above: The validity of the calculated GFR & GFRAA in patients over 70 years has not been determined. Clinical correlation is essential. Serum or plasma urea nitroge n measurement (mass/volume)Ordered By: Jack Hammond on 08-05-2023 Urea nitrogen [Mass/Vol] 24 mg/dL 7-18 [facility] Thin prep Papanicolaou smear with manual screeningOrdered By: Jack Hammond on 08-05-2023 Thin prep Papanicolaou smear with manual screening 4 5-15 [facility] Basophil percentageOrdered B y: Jack Hammond on 07-21-2023 Chloride [Moles/Vol] 107 mmol/L 98-107 [facility] Glucose [Mass/Vol] 130 mg/dL 74-106 [facility] Comment on above: Fasting Glucose resu lt greater than or equal to 126 mg/dL suggests DIABETES MELLITUS per A.D.A. criteria. Potassium [Moles/Vol] 4.2 mmol/L 3.5-5.1 [facility] Sodium [Moles/Vol] 140 mmol/L 136-145 [facility] - Chemistry and C hemistry - challengeOrdered By: Jack Hammond on 07-21-2023 CO2 [Moles/Vol] 30.0 mmol/L 21.0-32.0 [facility] Natriuretic peptide B (Bld) [Mass/Vol] 26.4 pg/mL 0-100 [facility] Urea nitrogen/Creatinine [Mass ratio] 15.9 mg/mg 10-20 [facility] No Panel InformationOrdered By: Jack Hammond on 07-21-2023 Estimated GFR (MDRD) Amer 61 mL/min >60 [facility] Comment on above: GFR Calc Estimated GFR (MDRD) Non-Af Amer 51 mL/min >60 [facility] Comment on above: Non- GFR Calc Serum or plasma calcium lillie urement (mass/volume)Ordered By: Jack Hammond on 07-21-2023 Calcium [Mass/Vol] 8.8 mg/dL 8.5-10.1 [facility] Serum or plasma creatinine m easurement (mass/volume)Ordered By: Jack Hammond on 07-21-2023 Creatinine [Mass/Vol] 1.45 mg/dL 0.70-1.30 [facility] Comment on above: The validity of the calculated GFR & GFRAA in patients over 70 years has not been determined. Clinical correlation is essential. Serum or plasma urea nitroge n measurement (mass/volume)Ordered By: Jack Hammond on 07-21-2023 Urea nitrogen [Mass/Vol] 23 mg/dL 7-18 [facility] Thin prep Papanicolaou smear with manual screeningOrdered By: Jack Hammond on 07-21-2023 Thin prep Papanicolaou smear with manual screening 3 5-15 [facility] Basophil percentageOrdered B y: Jack Hammond on 05-19-2023 Chloride [Moles/Vol] 107 mmol/L 98-107 [facility] Cholesterol [Mass/Vol] 113 mg/dL <200 [facility] Comment on above: <200 mg/dL Desirable 200-240 mg/dL Borderline >240 mg/dL High Risk Glucose [Mass/Vol] 169 mg/dL 74-106 [facility] Comment on above: Fasting Glucose resu lt greater than or equal to 126 mg/dL suggests DIABETES MELLITUS per A.D.A. criteria. Potassium [Moles/Vol] 4.3 mmol/L 3.5-5.1 [facility] Sodium [Moles/Vol] 138 mmol/L 136-145 [facility] Triglyceride [Mass/Vol] 136 mg/dL <199 [facility] Comment on above: The drugs N-Acetylcy steine and Metamizole may falsely depress this assay.Serum Triglycerides Reference Interval Normal <150 mg/dL Borderline high 150 - 199 mg/dL High 200 - 499 mg/dL Very High > or = 500 mg/dL Laboratory - Chemistry and C hemistry - challengeOrdered By: Jack Hammond on 05-19-2023 CO2 [Moles/Vol] 28.0 mmol/L 21.0-32.0 [facility] Urea nitrogen/Creatinine [Mass ratio] 12.8 mg/mg 10-20 [facility] No Panel InformationOrdered By: Jack Hammond on 05-19-2023 Estimated GFR (MDRD) Amer 73 mL/min >60 [facility] Comment on above: GFR Calc Estimated GFR (MDRD) Non-Af Amer 60 mL/min >60 [facility] Comment on above: Non- GFR Calc Prostate Specific Antigen Screen 1.57 ng/mL 0.00-4.00 [facility] Comment on above: This test was perfor med using the TPSA assay method for the[employer] chemistry system. Values obtained with differentassay methods cannot be used interchangably.When changing PSA assays in the course of monitoring apatient, additional sequential testing should be carriedout to confirm baseline values. Serum or plasma calcium lillie urement (mass/volume)Ordered By: Jack Hammond on 05-19-2023 Calcium [Mass/Vol] 9.1 mg/dL 8.5-10.1 [facility] Serum or plasma cholesterol in HDL measurement (mass/volume)Ordered By: Jack Hammond on 05-19-2023 Cholesterol in HDL [Mass/Vol] 34 mg/dL >40 [facility] Comment on above: The drugs N-Acetylcy steine and Metamizole may falsely depress this assay. Reference Range HDL <40 mg/dL Low HDL Cholesterol HDL >or= 60 mg/dL High HDL Cholesterol Serum or plasma cholesterol in VLDL measurement (mass/volume)Ordered By: Jack Hammond on 05-19-2023 Cholesterol in VLDL [Mass/Vol] 27 mg/dL 5-40 [facility] Serum or plasma creatinine m easurement (mass/volume)Ordered By: Jack Hammond on 05-19-2023 Creatinine [Mass/Vol] 1.25 mg/dL 0.70-1.30 [facility] Comment on above: The validity of the calculated GFR & GFRAA in patients over 70 years has not been determined. Clinical correlation is essential. Serum or plasma low density lipoprotein (LDL) cholesterol measurement (mass/volume)Ordered By: Jack Hammond on 05-19-2023 Cholesterol in LDL [Mass/Vol] 52 mg/dL 0-130 [facility] Serum or plasma urea nitroge n measurement (mass/volume)Ordered By: Jack Hammond on 05-19-2023 Urea nitrogen [Mass/Vol] 16 mg/dL 7-18 [facility] Thin prep Papanicolaou smear with manual screeningOrdered By: Jack Hammond on 05-19-2023 Thin prep Papanicolaou smear with manual screening 3 5-15 [facility] Basophil percentageon 2021 Chloride [Moles/Vol] 107 mmol/L 98-107 [facility] Work Phone: Cholesterol [Mass/Vol] 141 mg/dL <200 [facility] Work Phone: Comment on above: <200 mg/dL Desirable 200-240 mg/dL Borderline >240 mg/dL High Risk Glucose [Mass/Vol] 75 mg/dL 74-106 [facility] Work Phone: Potassium [Moles/Vol] 4.1 mmol/L 3.5-5.1 [facility] Work Phone: Sodium [Moles/Vol] 142 mmol/L 136-145 [facility] Work Phone: Triglyceride [Mass/Vol] 242 mg/dL <199 [facility] Work Phone: Comment on above: The drugs N-Acetylcy steine and Metamizole may falsely depress this assay.Serum Triglycerides Reference Interval Normal <150 mg/dL Borderline high 150 - 199 mg/dL High 200 - 499 mg/dL Very High > or = 500 mg/dL Laboratory - Chemistry and C hemistry - challengeon 05-25-2022 CO2 [Moles/Vol] 27.0 mmol/L 21.0-32.0 [facility] Work Phone: Free T4 [Mass/Vol] 1.19 ng/dL 0.76-1.46 [facility] Work Phone: Urea nitrogen/Creatinine [Mass ratio] 14.1 mg/mg 10-20 [facility] Work Phone: No Panel Informationon 05-25 Estimated GFR (MDRD) Amer 71 mL/min >60 [facility] Work Phone: Comment on above: GFR Calc Estimated GFR (MDRD) Non-Af Amer 59 mL/min >60 [facility] Work Phone: Comment on above: Non- GFR Calc Free Triiodothyronine (T3) pg/dL 2.4 pg/mL 2.18-3.98 [facility] Work Phone: Thyroid Stimulating Hormone (TSH) 3.81 uIU/mL 0.358-3.74 [facility] Work Phone: Serum or plasma calcium lillie urement (mass/volume)on 05-25-2022 Calcium [Mass/Vol] 9.7 mg/dL 8.5-10.1 [facility] Work Phone: Serum or plasma cholesterol in HDL measurement (mass/volume)on 05-25-2022 Cholesterol in HDL [Mass/Vol] 29 mg/dL >40 [facility] Work Phone: Comment on above: The drugs N-Acetylcy steine and Metamizole may falsely depress this assay. Reference Range HDL <40 mg/dL Low HDL Cholesterol HDL >or= 60 mg/dL High HDL Cholesterol Serum or plasma cholesterol in VLDL measurement (mass/volume)on 05-25-2022 Cholesterol in VLDL [Mass/Vol] 48 mg/dL 5-40 [facility] Work Phone: Serum or plasma creatinine m easurement (mass/volume)on 09-19-2022 Creatinine [Mass/Vol] 1.28 mg/dL 0.70-1.30 [facility] Work Phone: Comment on above: The validity of the calculated GFR & GFRAA in patients over 70 years has not been determined. Clinical correlation is essential. Serum or plasma low density lipoprotein (LDL) cholesterol measurement (mass/volume)on 05-25-2022 Cholesterol in LDL [Mass/Vol] 64 mg/dL 0-130 [facility] Work Phone: Serum or plasma urea nitroge n measurement (mass/volume)on 05-25-2022 Urea nitrogen [Mass/Vol] 18 mg/dL 7-18 [facility] Work Phone: Thin prep Papanicolaou smear with manual screeningon 05-25-2022 Thin prep Papanicolaou smear with manual screening 8 5-15 [facility] Work Phone: Encounters Encounter Date Encounter Type Care Provider Facility Start: 02-13-2025 End: 02-13-[address] Jack Hammond MD Work Phone: -Physical Therapy Start: 02-13-2025 End: 02-13-[address] Jack Hammond MD -Physical Therapy Work Phone: Start: 01-12-2025 End: 01-12-[address] Jeremias Raza MD -[facility] Start: 01-12-2025 End: 01-12-2025 ambulatory Jeremias R[place] [place]: 01-02-2025 End: 01-02-[address] Jack Hammond MD Work Phone: [facility] Work Phone: Start: 01-02-2025 End: 01-02-[address] Jack Hammond MD -Laboratory, [facility] Start: 01-02-2025 End: 01-02-2025 ambulatory Jack Hammond Facility:[facility] Start: 09-26-2024 End: 09-26-2024 Patient encounter procedure Dr. Jack Hammond MD -Laboratory, [facility] Start: 09-26-2024 End: 09-26-2024 ambulatory Jack Hammond Facility:[facility] Start: 04-26-2024 End: 04-26-2024 ambulatory Jack Hammond Facility:[facility] Start: 11-01-2023 End: 11-01-[address] Jack Hammond Work Phone: [facility] Work Phone: Start: 11-01-2023 End: 11-01-[address] Jack Hammond Work Phone: [facility] Start: 09-21-2023 Non-patient / Non-visit Dr. Harsh Hammond Work Phone: [facility] Start: 09-21-2023 End: 09-21-[address] Jack Hammond Work Phone: [facility] Work Phone: Start: 08-05-2023 End: 08-05-2023 ambulatory [facility] Work Phone: Start: 08-05-2023 End: 08-05-2023 Patient encounter procedure [facility] Start: 07-21-2023 End: 07-21-2023 ambulatory [facility] Work Phone: Start: 07-21-2023 End: 07-21-2023 Patient encounter procedure [facility] Start: 05-19-2023 End: 05-19-2023 ambulatory [facility] Work Phone: Start: 05-19-2023 End: 05-19-2023 Patient encounter procedure [facility] Start: 04-05-2023 End: 04-05-2023 ambulatory [facility] Work Phone: Start: 04-05-2023 End: 04-05-2023 Discharged Recurring [facility] Work Phone: Start: 03-15-2023 End: 04-05-2023 Discharged Recurring [facility] Work Phone: Start: 05-25-2022 End: 05-25-2022 ambulatory [facility] Work Phone: Start: 05-25-2022 End: 05-25-2022 Patient encounter procedure [facility], [place] [facility] Procedures Date Procedure Procedure Detail Performing Clinician Start: 01-12-2025 X-ray of lumbar spin e, two or three views Dr. Jack Hammond MD Work Phone: Start: 09-26-2024 Measurement of renal function Dr. Jack Hammond MD Work Phone: Comment on above: GFR Calc Plan of Treatment Date Care Activity Detail Author Patient referral [facility] Work Phone: Payers Date Payer Category Payer Self-pay [id number] 2023 Private Health Insurance [facility] [id number] 2013 Unknown [facility] [id number] Self-pay SELF PAY BY [employer] [id number] Unknown [id number] Unknown [id number] Unknown [id number] Unknown [id number] 62 Unknown [id number] Social History Date Type Detail Facility Start: 03-24-2021 End: 03-24-2021 Tobacco smoking status NHIS Unknown if ever smoked [facility] Start: 1950 Sex Assigned At Male [facility] Start: 12-18-2023 Tobacco smoking stat us NHIS Never smoked tobacco (finding) [facility] Medical Equipment Procedure Code Equipment Code Equipment Origin al Text Equipment Identifier Dates STENT,PROPEL SINUS FDA Start: 03-14-2019 STENT,PROPEL SINUS FDA Start: 03-14-2019 STENT,PROPEL SINUS FDA Start: 03-14-2019 STENT,PROPEL SINUS FDA Start: 03-14-2019 STENT,PROPEL SINUS FDA Start: 03-14-2019 STENT,PROPEL SINUS FDA Start: 03-14-2019 STENT,PROPEL SINUS FDA Start: 03-14-2019 STENT,PROPEL SINUS FDA Start: 03-14-2019 STENT,PROPEL SINUS FDA Start: 03-14-2019 STENT,PROPEL SINUS FDA Start: 03-14-2019 STENT,PROPEL SINUS FDA Start: 03-14-2019 STENT,PROPEL SINUS FDA Start: 03-14-2019 STENT,PROPEL SINUS FDA Start: 03-14-2019 STENT,PROPEL SINUS FDA Start: 03-14-2019 STENT,PROPEL SINUS FDA Start: 03-14-2019 STENT,PROPEL SINUS FDA Start: 03-14-2019 Discharge summary 03-05-2025 Note Date & Type Note Facility 03-05-2025 Discharge summary Note Date/Time March 05, 2025 3:52pm [facility] Physical [facility] [address] [place] [address] [address] [place] [id number] / REHABILITATION SERVICES DISCHARGE SUMMARY MR#: [id number] Acct: [id number] Name: LATONYA NANCE Rep #: [id number] : 1950 74 From: Elio Mccray DPT, OCS, CSCS Referring Dr.: Dr. Jack Hammond MD Status: REG RCR Insurance: [facility] [employer] Patient Information Patient Information: LATONYA NANCE was seen in my office for initial evaluation on 01/22/25. The following Plan of Care was established for this patient: POC Established Initial Frequency: 2x /Week Initial Duration: 4-6 Weeks Anticipated Interventions Patient/Client Instruction: Educate patient on: Condition and Plan of Care For the Purpose of:: To decrease pain, To increase ROM, To improve nutrient delivery to tissue, To improve muscle performance and motor function, To increase tolerance to activity/condition/position and To increase flexibility/ROM Therapeutic Exercise to Include: Strength training, Postural training, Flexibilty training, Passive ROM and Active ROM For the Purpose of:: To decrease pain, To increase ROM, To improve nutrient delivery to tissue, To improve muscle performance and motor function, To increase tolerance to activity/condition/position, To improve ability of physical actions for home/community/work/leisure and To improve gait and locomotor functions Manual Therapy Techniques to Include: Mobilization, Passive ROM and Soft tissue mobilization For the Purpose of:: To decrease pain, To increase ROM, To improve nutrient delivery to tissue, To improve muscle performance and motor function and To increase flexibility/ROM Thermo therapy (hot pack): Yes For the Purpose of:: To improve nutrient delivery to tissue and To decrease level of supervision to perform tasks Last Seen Last Seen: This patient was last seen in our office 02/13/25. Pertinent comments regardingtheir Physical therapy will appear below: Pt seen 7 visits of POC and was 90% better. He was to f/u two weeks later but cancelled stating evrything is doing great I will discontinue from my care. At this point I will be discontinuing this patient from physical therapy. I would be happy to see this patient again in the future if found appropriate by the physician. Thank you! Elio Mccray DPT, OCS, CSCS Balance/Gait/Functional tests Balance/Special Test Scores Oswestry Low Back Score: 5 <Electronically signed by lEio Mccray DPT, OCS, CSCS> 03/05/25 1552 CC: Dr. Jack Hammond MD ~ [facility] Signed [facility] Work Phone: Discharge summary 03-05-2025 Note Date & Type Note Facility 03-05-2025 Discharge summary [facility] Evaluation note Note Date & Type Note Facility Evaluation note No assessment information availa ble [facility] Work Phone: Reason for referral (narrative) Note Date & Type Note Facility Reason for referral (narrative) No reason for referral information available [facility] Work Phone: Advance Directives No Advanced Directives Records Found Advance Directive Response Recorded Date/ Time Living Will Yes March 07, 2019 8 :14am Power of Tire Room Supervisor Yes March 07, 2019 8:14am Advance Directive Response Recorded Date/ Time Living Will Yes March 07, 2019 7 :14am Power of Tire Room Supervisor Yes March 07, 2019 7:14am Chief Complaint and Reason for Visit Chief Complaint DINING WITH DIABETES Chief Complaint Edema, unspecified Chief Complaint Admit Date xray January 12, 2025 11:23a m BACK PAIN. RX HERE February 13, 2025 10:3 0am Summary Purpose Family History No Family History Records Found Additional Source Comments Goals (unrecognized section and content) Goals may be documented in a n alternate sectionGoals may be documented in an alternate sectionGoals may be documented in an alternate sectionGoals may be documented in an alternate sectionGoals may be documented in an alternate sectionGoals may be documented in an alternate sectionGoals may be documented in an alternate sectionGoals may be documented in an alternate section Care Teams (unrecognized sec tion and content) Team Status: Active Member Role Status Dates Dr. Jack Hammond MD Family Provider Active Dr. Jack Hammond MD Primary Care Provider Active Team Status: Inactive Member Role Status Dates Dr. Jack Hammond MD Primary Care Provider Active Self Referred Attending Provider Active Team Status: Inactive Member Role Status Dates Dr. Jack Hammond MD Primary Care Provider, Attending Provider Active Team Status: Active Member Role Status Dates Dr. Jack Hammond MD Primary Care Provider Active Dr. Jeremias Raza MD Attending Provider, Referring Pro vider Active Team Status: Inactive Member Role Status Dates Dr. Jack Hammond MD Primary Care Provi mitch, Attending Provider, Referring Provider Active Team Status: Inactive Member Role Status Dates Dr. Jack Hammond MD Primary Care Provider Active Start: September 26, 2024 End: September 26, 2024 Dr. Jack Hammond MD Attending Provider Active Start: September 26, 2024 End: September 26, 2024 Dr. Jack Hammond MD Referring Provider Active Start: September 26, 2024 End: September 26, 2024 Team Status: Inactive Member Role Status Dates Dr. Jack Hammond MD Primary Care Provider Active Start: January 02, 2025 End: January 02, 2025 Dr. Jack Hammond MD Attending Provider Active Start: January 02, 2025 End: January 02, 2025 Dr. Jack Hammond MD Referring Provider Active Start: January 02, 2025 End: January 02, 2025 Team Status: Active Member Role/Relationship Status Dates Dr. Jack Hammond MD Primary Care Provider Active Team Status: Inactive Member Role/Relationship Status Dates Dr. Jack Hammond MD Primary Care Provider Active Start: January 02, 2025 End: January 02, 2025 Dr. Jack Hammond MD Attending Provider Active Start: January 02, 2025 End: January 02, 2025 Dr. Jack Hammond MD Referring Provider Active Start: January 02, 2025 End: January 02, 2025 Team Status: Inactive Member Role/Relationship Status Dates Dr. Jack Hammond MD Primary Care Provider Active Start: January 12, 2025 End: January 12, 2025 Dr. Jeremias Raza MD Attending Provider Active S tart: January 12, 2025 End: January 12, 2025 Team Status: Inactive Member Role/Relationship Status Dates Dr. Jack Hammond MD Primary Care Provider Active Start: February 13, 2025 End: February 13, 2025 Dr. Jack Hammond MD Attending Provider Active Start: February 13, 2025 End: February 13, 2025 Dr. Jack Hammond MD Referring Provider Active Start: February 13, 2025 End: February 13, 2025 (unrecognized sect ion and content) No Status Records Found INFORMATION SOURCE (unrecogn ized section and content) DATE CREATED AUTHOR 03/10/2025 [facility] FOR RECORDS PERTAINING TO PATIENTS WHO ARE OR HAVE BEEN ENROLLED IN A CHEMICAL DEPENDENCY/SUBSTANCEABUSE PROGRAM, SOME INFORMATION MAY BE OMITTED. This clinical summary was aggregated from multiple sources. Caution should be exercised in using it in the provision of clinical care. This summary normalizes information from multiple sources, and as a consequence, information in this document may materially change the coding, format and clinical context of patient data. In addition, data may be omitted in some cases. CLINICAL DECISIONS SHOULD BE BASED ON THE PRIMARY CLINICAL RECORDS. [employer] provides no warranty or guarantee of the accuracy or completeness of information in this document.
[2025-04-10 10:41] LABS: Free T3 2.6 pg/mL (2.18-3.98)
== END | disposition home or self-care (01) ==
LOC: MFPLAB 08:55
PROVIDERS: PCP Family Medicine; Referring Provider Family Medicine; Visit Provider Family Medicine
DX: E03.9 Hypothyroidism, unspecified (principal)
CPT/HCPCS: 36415; 84439; 84443; 84481

== ENCOUNTER → 2025-07-12 | Outpatient (CLI) | payer MEDICARE, SELFPAY ==
[2025-07-12 13:28] LABS: Anion Gap 11 (5-15); BUN 19 mg/dL (4-19); BUN/Creat Ratio 17.1 RATIO (10-20); Calcium,Total 9.4 mg/dL (7.6-11.0); Carbon Dioxide 26.7 mmol/L (21.0-32.0); Chloride 103 mmol/L (98-108); Cholesterol 115 mg/dL (<=200); Glucose 167 mg/dL (70-99); Low Density Lipoprotein Calc. 59 mg/dL; Potassium 4.3 mmol/L (3.3-5.1); Triglycerides 121 mg/dL; Very Low Density Lipoprotein 24 mg/dL (5-40); cholesterol:hdl ratio screen 3.38
== END | disposition home or self-care (01) ==
LOC: MFPLAB 10:30
PROVIDERS: PCP Family Medicine; Visit Provider Family Medicine
DX: E11.21 Type 2 diabetes mellitus with diabetic nephropathy (principal)
CPT/HCPCS: 36415; 80048; 80061